=== PATIENT | female | born 1945 | race Caucasian/White ===

== ENCOUNTER → 2017-12-29 16:06 | Outpatient (CLI) | payer MEDICARE, SELFPAY | PROVIDERS: Family Provider Family Medicine; PCP Family Medicine; Visit Provider Family Medicine | DX: M25.532 Pain in left wrist (principal); M25.561 Pain in right knee; M25.562 Pain in left knee | CPT/HCPCS: 73110; 73562 ==

== ENCOUNTER → 2018-02-23 14:41 | Outpatient (CLI) | payer MEDICARE, SELFPAY ==
[2018-02-23 16:16] LABS: Absolute Lymphocyte Count 1.26 X10^3/ul (0.83-4.51); Absolute Neutrophil Count 4.3 X10^3/uL (2.0-7.7); Basophil# 0.03 X10^3/uL; Basophil% 0.5 % (0-1); Eosinophil# 0.07 X10^3/uL; Eosinophils% 1.1 % (0-5); Hematocrit 35.5 % (37-47); Hemoglobin 11.2 g/dl (12.0-15.0); Lymphocyte # 1.26 X10^3/ul (4.0); Mean Corp Hgb Conc 31.5 g/gl (32-36); Mean Corpuscular Hgb 26.4 pg (27.0-32.0); Mean Corpuscular Volume 83.7 fL (81-99); Mean Platelet Vol. 9.8 fl (6.2-12.0); Monocyte# 0.62 X10^3/uL; Monocyte% 9.9 % (0-10); Neutrophil # 4.28 X10^3/uL (2.7-7.7); Platelet Count 571 K/mm3 (150-450); RBC Distribution Width CV 14.1 % (11.6-14.6); RBC Distribution Width SD 42.6 fl (35.1-43.9); Red Blood Count 4.24 M/mm3 (4.2-5.4); White Blood Count 6.3 K/mm3 (4.4-11.0)
[2018-02-23 16:20] LABS: POSITIVE COUNT NO; POSITIVE DIFFERENTIAL NO; POSITIVE MORPHOLOGY NO
[2018-02-23 16:35] LABS: Erythrocyte Sedimentation Rate 74 mm/hr (0-30)
[2018-02-23 16:52] LABS: ALB/GLOB Ratio 0.6 RATIO (0.9-2.4); AST(SGOT) 15 U/L (15-37); Alanine Aminotransfer ALT/SGPT 18 U/L (13-56); Albumin, Serum 3.1 g/dL (3.2-5.0); Alkaline Phosphatase 125 U/L (45-117); Anion Gap 12 (5-15); BUN 14 mg/dL (7-18); BUN/Creat Ratio 15.9 RATIO (10-20); Calcium,Total 8.8 mg/dL (8.5-10.1); Chloride 101 mmol/L (98-107); Creatinine, Serum 0.88 mg/dL (0.55-1.02); EST Glomerular Filtration Rate 67 mL/min (>60); Est Glom Filt Rate - Afr Amer 81 mL/min (>60); Globulin 4.8 g/dL (2.2-4.2); Glucose 79 mg/dL (74-106); Potassium 4.2 mmol/L (3.5-5.1); Protein, Total 7.9 g/dL (6.4-8.2); Rheumatoid Factor < 10.0 IU/mL (<15); Sodium Level 138 mmol/L (136-145)
[2018-02-26 16:09] LABS: SJOGREN'S Anti-SS-A test < 0.2 AI (0.0-0.9); SJOGREN'S Anti-SS-B test < 0.2 AI (0.0-0.9)
[2018-02-27 10:48] LABS: CCP IgG Antibodies 8 units (0-19); HEPATITIS B SURFACE AG Negative (Negative); Hep B Surface Antibodies Non Reactive (.); Hep C Antibodies <0.1 s/co ratio (0.0-0.9)
[2018-02-27 11:23] LABS: ANTINUCLEAR ANTIBODIES DIRECT Negative (Negative)
== END ==
PROVIDERS: Family Provider Family Medicine; PCP Family Medicine; Referring Provider Internal Medicine Rheumatology; Visit Provider Internal Medicine Rheumatology
DX: M06.4 Inflammatory polyarthropathy (principal); M15.9 Polyosteoarthritis, unspecified; Q66.7 Congenital pes cavus; J44.9 Chronic obstructive pulmonary disease, unspecified; F41.9 Anxiety disorder, unspecified; G47.00 Insomnia, unspecified
CPT/HCPCS: 36415; 80053; 85025; 85652; 86038; 86140; 86200; 86235; 86431; 86706; 86803; 87340

== ENCOUNTER 2018-05-02 00:11 | Inpatient (IN) | payer MEDICARE, SELFPAY ==
[2018-05-02] VITALS (21 sets, daily range): BP systolic 97–150; BP diastolic 31–87; PULSE 80–136; RESP 18–35; TEMP 36.4–37.8; O2SAT 85–100; BMI 19.0; BMI 22.1; BMI 22.2
--- NOTE | 2018-05-02 00:17 | ED.RN ---
RN CALLED FOR EKG, PULLED OLD EKGS FOR
--- NOTE | 2018-05-02 00:21 | EKG12_ITS ---
Test Reason : SOB Blood Pressure : / mmHG Vent. Rate : 132 BPM Atrial Rate : 132 BPM P-R Int : 154 ms QRS Dur : 088 ms QT Int : 286 ms P-R-T Axes : 073 097 025 degrees QTc Int : 423 ms Sinus tachycardia Rightward axis Nonspecific ST and T wave abnormality Abnormal ECG Confirmed by WANG ALVES, KALI ([id number]), mapping editor DESTINY RODRÍGUEZ ([id number]) on 05/03/2018 1:57:23 PM Referred By: JO Confirmed By:KALI PIÑA MD
[2018-05-02] MEDS: Ipratropium/Albuterol Sulfate 3 ML AMPUL.NEB INHALATION ×6 (00:24→22:48)
[2018-05-02] MEDS: MethylPREDNISolone 125 MG/2 ML Vial IV (00:26)
[2018-05-02] MEDS: 0.9% Normal Saline 1,000 ML 999 ML IV (00:27)
[2018-05-02] MEDS: Albuterol 2.5 MG/3 ML VIAL.NEB. INHALATION (00:35)
--- NOTE | 2018-05-02 00:35 | RAD_ITS ---
STUDY: X-RAY CHEST REASON FOR EXAM: Female, 72 years old. Shortness of breath TECHNIQUE: Single AP portable view of the chest. COMPARISON: 04/20/2017 FINDINGS: Patchy airspace infiltration throughout bilateral lung bases. Likely small right pleural effusion. Normal size heart. Normal mediastinum and julio. Normal visualized pulmonary arteries. There is atherosclerotic calcification of the aortic arch . Normal visualized thoracic spine. Normal visualized ribs, clavicles, and shoulders. There is no demonstrated abnormality of the visualized soft tissue structures of the upper abdomen. RAD/Chest 1 View (Portable) IMPRESSION: Bibasilar infiltrates. Electronically Signed: Edilson Zuniga MD at 1:08 EST Tel , Service support ,
[2018-05-02 00:45] LABS: Absolute Lymphocyte Count 0.88 X10^3/ul (0.83-4.51); Absolute Neutrophil Count 13.4 X10^3/uL (2.0-7.7); Basophil# 0.02 X10^3/uL; Basophil% 0.1 % (0-1); Eosinophil# 0.09 X10^3/uL; Eosinophils% 0.6 % (0-5); Hematocrit 29.8 % (37-47); Hemoglobin 9.6 g/dl (12.0-15.0); Lymphocyte # 0.88 X10^3/ul (4.0); Lymphocyte % 5.7 % (19-41); Mean Corp Hgb Conc 32.2 g/gl (32-36); Mean Corpuscular Hgb 25.5 pg (27.0-32.0); Monocyte# 0.97 X10^3/uL; Monocyte% 6.3 % (0-10); Neutrophil # 13.41 X10^3/uL (2.7-7.7); Neutrophil % 86.8 % (47-70); Platelet Count 476 K/mm3 (150-450); RBC Distribution Width CV 19.8 % (11.6-14.6); RBC Distribution Width SD 57.2 fl (35.1-43.9); Red Blood Count 3.77 M/mm3 (4.2-5.4); White Blood Count 15.5 K/mm3 (4.4-11.0)
[2018-05-02 00:47] LABS: POSITIVE COUNT NO; POSITIVE DIFFERENTIAL NO; POSITIVE MORPHOLOGY NO
[2018-05-02 00:58] LABS: Anion Gap 12 (5-15); BUN 23 mg/dL (7-18); BUN/Creat Ratio 22.5 RATIO (10-20); Calcium,Total 8.7 mg/dL (8.5-10.1); Chloride 101 mmol/L (98-107); Creatinine, Serum 1.02 mg/dL (0.55-1.02); EST Glomerular Filtration Rate 56 mL/min (>60); Est Glom Filt Rate - Afr Amer 68 mL/min (>60); Estimated Creatinine Clearance 41.51 ml/min; Glucose 118 mg/dL (74-106); Potassium 3.5 mmol/L (3.5-5.1); Sodium Level 137 mmol/L (136-145)
[2018-05-02 01:01] LABS: Lactic Acid 1.9 mmol/L (0.4-2.0)
[2018-05-02] MEDS: Ceftriaxone 1 GM/50 ML BAG IV ×2 (01:24→21:14)
--- NOTE | 2018-05-02 01:46 | ED.VISSUMM ---
- ER Visit Summary Date of Service: 05/02/18 Chief Complaint: Shortness of breath History of Present Illness: The patient is a [address] Antelmo Braun. She reports she has shortness of breath began 2 days ago. She has had a cough over the same timeframe that is productive of black sputum without blood. She has had subjective fever and chills. She reports that she has had constant chest pain that over the lower chest for the past 2 days. Is much worse when she coughs. She did not get a flu shot. Patient reports that she had stopped smoking approximately a year ago. However, 1 week ago she went on a binge where she smoked 3 packs of cigarettes and 4 days. Physical Examination: Vitals: 98.6, 113/67, 122, 35, 85% on room air which is hypoxic. General: Well-nourished and well-developed. Head: Normocephalic atraumatic. Neck: Supple, no lymphadenopathy. No JVD. Nontender. Cardiovascular: Tachycardic regular rhythm. No murmurs. Respiratory: Severe respiratory distress. Her lungs are quiet with greatly decreased air movement. Abdominal: Soft, nontender, nondistended, normal bowel sounds. No guarding, rebound, or peritoneal signs. Back: Nontender. Extremities: Nontender, no edema. Skin: Normal color, no rash. Neurologic: Alert and oriented ?3. Cranial nerves II through XII are intact. Normal strength and sensation. Psych: Normal affect. Test Results: EKG sinus tach [address] changes. Troponin is negative. Influenza is negative. Lactic acid is 1.9. Chem-7 is more for BUN of 23 and glucose 118. CBC is more for a white count of 15.5 with 87 segmented neutrophils and 6 lymphocytes. H&H of 9.6 and 29.8. Platelets of 476. Chest x-ray shows bibasilar infiltrates. Emergency Department Course and Treatment: Patient was placed on oxygen. She was given albuterol and Atrovent aerosols. On repeat exam she has much better air movement. There is no wheezing at this time. She does have rhonchi at the bases bilaterally. She was given Solu-Medrol, Rocephin, and Zithromax IV. She feels much improved. Treatment Plan: Patient was discussed with the hospitalist. She will be admitted to the hospital for further evaluation and treatment. Disposition: Admitted in improved condition. Impression: 1. Pneumonia, community-acquired. 2. COPD. 3. Hypoxia. This note was generated with [employer] dictation software. It may contain incorrect words, spelling, and punctuation that were not noted in review of the chart prior to signing ED Disposition - Plan for ED Patient: Chief Complaint: Shortness of Breath Referrals: Antelmo Logan MD [Primary Care Provider] -
--- NOTE | 2018-05-02 01:56 | HP.PCM_ITS ---
Problem List (1) Community acquired pneumonia Status: Acute (2) COPD (chronic obstructive pulmonary disease) Status: Chronic Qualifiers: COPD type: unspecified COPD Qualified Code(s): J44.9 - Chronic obstructive pulmonary disease, unspecified (3) Tobacco use Status: Chronic (4) Anxiety and depression Status: Chronic History of Present Illness Date of Admission: 05/02/18 Chief Complaint: shortness of breath The patient is a 72 year old F with a significant history of anxiety; depression; and COPD who was on previous home oxygen presented because of 3-5-day history of progressively worsening shortness of breath requiring her to oxygen from her friend. Associated with her symptoms is headache; fatigue; a productive cough of black and green sputum. She reports feeling hot and cold. Patient reports that she quit smoking about a year ago but during the season she was in the midst of a couple of friends who were smoking so she went into binge smoking. Chest x-ray showed bibasilar infiltrates. Patient did not get the flu influenza shot this season. On admission patient had tachycardia with respiratory rate as high as 35; tachycardia with respiratory rate as high as 122. Her T-max was 100.1. On admission her white count was elevated at 15.5 Initially her oxygen saturation was 85%. Also patient reports difficulty walking attributed to arthritis. She reported that she recently saw a drawstring knotter and was placed on medications. Past Medical History Past Medical History (Chronic Problems): Chronic Problems COPD (chronic obstructive pulmonary disease) (Chronic) Tobacco use (Chronic) Anxiety and depression (Chronic) Allergies levofloxacin [From Levaquin] Allergy (Verified 05/02/18 00:23) Other Home Medications: Ambulatory Orders Medication Instructions Recorded Clonazepam [Klonopin] 0.5 mg PO BID 04/20/17 Aspirin [Aspirin, Baby] 81 mg PO DAILY@0800 05/02/18 Folic Acid 2 mg PO DAILY 05/02/18 Methotrexate Sodium [Methotrexate] 10 mg PO QWEEK 05/02/18 Nortriptyline HCl 100 mg PO QHS 05/02/18 Prednisone [Deltasone] 10 mg PO DAILY PRN 05/02/18 Surgical History: no surgical history Psychiatric History: Anxiety, Depression TV NEWS DIRECTOR History: No pertinent TV NEWS DIRECTOR history Smoking Status: Former smoker - Quit in less than 1 week. - *Family History Paternal History Items: Unknown - She reported that she does not know her paternal family history. Maternal History Items: Cancer - Breast CA., Heart Disease, - Review of Systems Constitutional: Reports: Chills, Fever, Malaise, Fatigue. Denies: Weight Change HEENT: Reports: Head Aches. Denies: Sinus Congestion, Sinus Drainage Cardiovascular: Denies: Chest Pain, Palpitations Respiratory: Reports: Shortness of Breath. Denies: Cough, Shortness of breath at rest, Sputum production Gastrointestinal: Denies: Abdominal Pain, Nausea, Vomiting Genitourinary: Denies: Dysuria Musculoskeletal: Reports: Joint Pain Skin: Denies: Rash, Wounds Neurological: Denies: Numbness, Tingling, Focal weakness Psychiatric: Reports: Anxiety. Denies: Depression, Homicidal Ideations, Suicidal Ideations Hematologic/ Lymphatic: Denies: Easy Bruising, Easy Bleeding VTE Information - Inpt Only VTE Present on Admission: No VTE Mechan Device Prophylaxis: SCD's VTE Pharm Prophylaxis ordered?: No Patient Problems: Active and Suspected Problems Community acquired pneumonia (Acute) - Physical Exam General: Alert, Oriented x3, Cooperative HEENT: Atraumatic, PERRLA, EOMI, Normocephalic Neck: Supple, No JVD, Negative Carotid Bruits Lungs: Diminished, Tachypneic, - - Bilateral chest Cardiovascular: No murmurs, Tachycardic Abdomen: Bowel Sounds Present, Soft, Non Tender Extremities: No edema, Capillary Refill Less than 3 Seconds Skin: No rashes, No breakdown Musculoskeletal: Cachexia Neurological: Neuro grossly intact Psych/Mental Status: Normal Affect, Appropriate Vital Signs Temp Pulse Resp BP Pulse Ox 100.1 F H 122 H 30 H 115/52 L 94 05/02/18 01:22 05/02/18 01:22 05/02/18 01:22 05/02/18 01:22 05/02/18 01:22 Oxygen Flow Rate (L/min) 2 Oxygen Delivery Method Nasal Cannula Weight: 53.524 kg Body Mass Index (BMI) 19.0 Microbiology Past 72 Hours 05/02/18 00:35 Influenza Types A,B Direct FA (MALLY) - Final Mucosa - Nasopharyngeal Laboratory Tests Past 24 Hrs 05/02/18 05/02/18 05/02/18 00:25 00:25 00:25 WBC 15.5 H RBC 3.77 L Hgb 9.6 L Hct 29.8 L MCV 79.0 L MCH 25.5 L MCHC 32.2 RDW 19.8 H RDW Differential 57.2 H Plt Count 476 H MPV 9.0 Immature Gran % (Auto) 0.500 Neut % (Auto) 86.8 H Lymph % (Auto) 5.7 L [place] % (Auto) 6.3 Eos % (Auto) 0.6 Baso % (Auto) 0.1 Absolute Neuts (auto) 13.4 H Absolute Lymphs (auto) 0.88 Total Counted Not Reportable Sodium 137 Potassium 3.5 Chloride 101 Carbon Dioxide 24.0 Anion Gap 12 BUN 23 H Creatinine 1.02 Estim Creat Clear Calc 41.51 Est GFR (MDRD) Af Amer 68 Est GFR (MDRD) Non-Af 56 L BUN/Creatinine Ratio 22.5 H Glucose 118 H Lactic Acid 1.9 Calcium 8.7 Troponin I < 0.015 Assessment/Plan All Active Problems Community acquired pneumonia (Acute) The patient is a 72 year old F with a significant history of anxiety; depression; and COPD who was on previous home oxygen presented because of 3-5-day history of progressively worsening shortness of breath; chills; and with tachycardia; tachypnea; leukocytosis; and radiographic evidence of bilateral infiltrates consistent with severe sepsis secondary to likely community-acquired pneumonia. Severe sepsis Blood culture are pending Independent review of chest x-ray showed bilateral infiltrates. Review of old records show that patient has baseline fibrosis. However she has more opacities bilaterally at this time. And with her tachycardia; tachypnea; leukocytosis; fever and chills patient is septic. Lactic acid was unremarkable. Respiratory Gram stain and culture pending Antibiotics: Received Ceftriaxone and azithromycin in the emergency department. Received normal saline bolus at emergency department. DuoNeb scheduled. Albuterol as needed Legionella antigen screen and Strep antigen ordered Solu-Medrol due to severity of her condition. Mucinex ordered Influenza screen negative. Respiratory pathogen panel ordered. Tylenol for fever and headaches. Oxygen to maintain oxygen saturation more than 90%. Acute COPD exacerbation Breathing treatments: Scheduled DuoNeb and as needed albuterol. Steroid as above. Depression Nortriptyline continued Anxiety :clonazepam continued Rheumatoid arthritis: Methotrexate continued Tobacco abuse She reported that she will be seen to be quite good. Declined nicotine patch. Cachexia. Reported BMI in EMR is 22.2. However patient looks cachectic Ensure Enlive ordered Rheumatoid arthritis: Methotrexate with folic acid continued. DVT prophylaxis Lovenox subcutaneous. Code Visit Inpatient E&M: 21606 Init Hosp L3
[2018-05-02 05:55] LABS: M R Staph aureus DNA By PCR Negative (Negative); Probe Check PASS; Specimen Processing Control PASS
[2018-05-02] MEDS: CLARIFY ORDER 1 EACH NOTE (07:23)
[2018-05-02] MEDS: Enoxaparin 40 MG/0.4 ML Syringe SC (08:31)
[2018-05-02] MEDS: Aspirin 81 MG TAB.CHEW PO (08:31)
[2018-05-02] MEDS: 0.9% NaCl Peripheral Flush Adult/Peds IV ×4 (08:32→21:15)
[2018-05-02] MEDS: clonazePAM 0.5 MG Tablet PO ×2 (09:09→21:14)
[2018-05-02] MEDS: Folic Acid 1 MG Tablet 2 MG PO (09:09)
[2018-05-02] MEDS: guaiFENesin 1,200 MG Tablet 1200 MG PO ×2 (09:09→21:14)
--- NOTE | 2018-05-02 10:19 | CASEMGMT ---
AMA CM Assessment Presentation: 3-5 day history of progressive shortness of breath. Bibasilar infiltrates, pneumonia. Sat 85% on admission. PCP: Dr. Dinorah Logan Preferred [facility]acy: [facility] Insurance: [facility] Prescription Benefit: yes LNOK: Lian Hall, Niece Living Arrangements: Lives independently in own home, one story, 1 step into home Transportation: drives or friend, family can assist DME/HHC: Home Oxygen through [facility] with concentrator, portable tank, (no nebulizer), walker, cane DC PLAN: Home on dc
--- NOTE | 2018-05-02 19:14 | PCM.HOSP.N ---
Hospitalist Note And examined today briefly, her respiratory panel results are pending at this time. She is currently on room air. I will repeat the patient's CBC tomorrow and continue present treatment for now.
[2018-05-02] MEDS: Nortriptyline 25 MG Capsule 100 MG PO (21:15)
[2018-05-02] MEDS: 0.9% NaCl IVPB Med Flush (250 mL) 15 ML IV (22:13)
[2018-05-03] VITALS (12 sets, daily range): BP systolic 95–156; BP diastolic 58–67; PULSE 78–104; RESP 16–20; TEMP 36.4–36.7; O2SAT 93–95
[2018-05-03] MEDS: Ipratropium/Albuterol Sulfate 3 ML AMPUL.NEB INHALATION ×6 (02:42→22:53)
[2018-05-03] MEDS: 0.9% NaCl Peripheral Flush Adult/Peds IV ×2 (05:49→20:54)
[2018-05-03] MEDS: guaiFENesin 10 ML UDC (200MG/10ML) PO (05:49)
--- NOTE | 2018-05-03 06:20 | RAD_ITS ---
STUDY: X-RAY CHEST REASON FOR EXAM: Female, 72 years old. Shortness of breath. TECHNIQUE: PA and lateral views of the chest. COMPARISON: Comparison is made with prior study dated May 02, 2018. FINDINGS: Since prior study, there is been progression of the increased interstitial markings at the lung bases with areas of confluence. This may represent chronic scarring with a superimposed bibasilar infiltration and/or atelectasis. Hyperinflation. Blunting of both costophrenic angles. Normal size heart. Normal mediastinum and julio. Normal visualized pulmonary arteries. There is atherosclerotic calcification of the aortic arch with tortuosity. There is an increased kyphosis of the thoracic spine. Normal visualized ribs, clavicles, and shoulders. There is no demonstrated abnormality of the visualized soft tissue structures of the upper abdomen. RAD/Chest PA and Lateral IMPRESSION: Progressive infiltrates of the lung bases. This is suggestive of chronic interstitial fibrosis with superimposed infiltration and/or atelectasis. Electronically Signed: Emerson Corona MD at 13:02 EST Tel [phone], Service support ,
[2018-05-03 06:25] LABS: Absolute Lymphocyte Count 0.45 X10^3/ul (0.83-4.51); Absolute Neutrophil Count 12.7 X10^3/uL (2.0-7.7); Eosinophil# 0.05 X10^3/uL; Eosinophils% 0.4 % (0-5); Hemoglobin 8.1 g/dl (12.0-15.0); Lymphocyte # 0.45 X10^3/ul (4.0); Lymphocyte % 3.4 % (19-41); Mean Corp Hgb Conc 32.4 g/gl (32-36); Mean Corpuscular Hgb 25.5 pg (27.0-32.0); Mean Corpuscular Volume 78.6 fL (81-99); Mean Platelet Vol. 9.8 fl (6.2-12.0); Monocyte% 1.5 % (0-10); Neutrophil # 12.66 X10^3/uL (2.7-7.7); Neutrophil % 94.3 % (47-70); Platelet Count 505 K/mm3 (150-450); RBC Distribution Width CV 19.8 % (11.6-14.6); RBC Distribution Width SD 54.1 fl (35.1-43.9); Red Blood Count 3.18 M/mm3 (4.2-5.4); White Blood Count 13.4 K/mm3 (4.4-11.0)
[2018-05-03 06:28] LABS: Differential Indicated SCAN CRITERIA MET; POSITIVE COUNT NO; POSITIVE DIFFERENTIAL YES; POSITIVE MORPHOLOGY NO
[2018-05-03 06:46] LABS: Anion Gap 10 (5-15); BUN 26 mg/dL (7-18); Calcium,Total 8.5 mg/dL (8.5-10.1); Chloride 104 mmol/L (98-107); Creatinine, Serum 0.87 mg/dL (0.55-1.02); EST Glomerular Filtration Rate 68 mL/min (>60); Est Glom Filt Rate - Afr Amer 82 mL/min (>60); Estimated Creatinine Clearance 53.91 ml/min; Glucose 263 mg/dL (74-106); Potassium 3.7 mmol/L (3.5-5.1); Sodium Level 138 mmol/L (136-145)
--- NOTE | 2018-05-03 08:18 | CT_ITS ---
STUDY: CT CHEST WITHOUT CONTRAST REASON FOR EXAM: Female, 72 years old. History of lung nodule. Chronic cough. Sepsis. RADIATION DOSAGE (If Supplied By Facility): CTDIvol = ( 7.59 ) mGy, DLP = ( 252.77 ) mGycm TECHNIQUE: Transaxial imaging was performed without the administration of intravenous contrast material. Multiplanar coronal and sagittal images were reformatted. Individualized dose optimization techniques were used for this CT. COMPARISON: Comparison is made with prior examination dated April 23, 2017. FINDINGS: Hyperinflation. Increased interstitial markings with areas of confluence with cystic spaces suggestive of chronic interstitial fibrosis. There is also evidence of patchy infiltrates at the lung bases. There is no demonstrated pleural abnormality. There are calcifications of the coronary arteries. Slightly enlarged mediastinal lymph nodes. Calcified right hilar lymph nodes. Normal unenhanced pulmonary arteries. There is atherosclerotic calcification of the aortic arch with tortuosity and elongation of the aortic arch and descending thoracic aorta. There are multi-level degenerative changes of the thoracic spine. Increased kyphosis. Moderate sized hiatal hernia. CT/Chest without Contrast IMPRESSION: Findings in keeping with bibasilar infiltrates superimposed on chronic interstitial fibrosis. Electronically Signed: Emerson Corona MD at 15:53 EST Tel [phone], Service support ,
[2018-05-03] MEDS: Aspirin 81 MG TAB.CHEW PO (08:39)
[2018-05-03] MEDS: clonazePAM 0.5 MG Tablet PO ×2 (08:39→20:54)
[2018-05-03] MEDS: Folic Acid 1 MG Tablet 2 MG PO (08:39)
[2018-05-03] MEDS: guaiFENesin 1,200 MG Tablet 1200 MG PO ×2 (10:29→20:54)
[2018-05-03] MEDS: Enoxaparin 40 MG/0.4 ML Syringe SC (10:29)
[2018-05-03] MEDS: Calcium Carbonate 500 MG Tablet PO (14:07)
--- NOTE | 2018-05-03 16:08 | PCM.PROGNOTE ---
Patient Problems: Active and Suspected Problems Community acquired pneumonia (Acute) Subjective: Patient seen and examined today, she has been stable on room air today, CT scan was performed which showed areas of fibrosis in the lung along with bibasilar infiltrates. Patient white blood cell count is improved today. Patient is afebrile. - Physical Exam General: Alert, Oriented x3, Cooperative, No apparent distress, Well developed HEENT: Atraumatic, PERRLA, EOMI, Normocephalic Oral: Moist Mucosa Neck: Supple, No Nuchal Rigidity, Trachea Midline, Thyroid Normal Size and Texture Lungs: No rhonchi, No wheeze, Rales - Inspiratory rales are noted at the bases bilaterally Cardiovascular: Regular rate, Regular Rhythm, Normal S1, Normal S2, No murmurs, No Ectopic Activity, PMI Normal, No rub noted, No Gallop Abdomen: Bowel Sounds Present, Soft, Non Tender, Non-Distended, No hernias noted Extremities: No edema, Capillary Refill Less than 3 Seconds Skin: No rashes, No breakdown Neurological: Cranial nerves II-XII grossly intact, Neuro grossly intact, Sensory exam intact to light touch and pain, Coordination normal Psych/Mental Status: Normal Affect, Appropriate, Alert and oriented to time, place, person, mood and affect Vital Signs Temp Pulse Resp BP Pulse Ox 97.9 F 85 20 H 99/59 L 94 05/03/18 10:51 05/03/18 15:24 05/03/18 15:24 05/03/18 10:51 05/03/18 14:00 Oxygen Flow Rate (L/min) 2 Oxygen Delivery Method Room Air Weight: 62.3 kg Body Mass Index (BMI) 22.1 Intake and Output for Last 24 Hours 05/01/18 05/02/18 05/03/18 23:59 23:59 23:59 Intake Total 2012 540 / 540 Output Total 1400 / 1400 600 / 600 Balance 613 / 613 -60 / -60 Microbiology Past 72 Hours 05/02/18 07:15 Gram Stain - Final Sputum, Expectorated/Coughed Respiratory Culture - Preliminary GNR lactose 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 05/02/18 07:10 Respiratory Panel (PCR) - Final Mucosa - Nasopharyngeal 05/02/18 03:53 Legionella Antigen - Final Urine, Clean Catch 05/02/18 03:53 Streptococcus pneumoniae Antigen (M - Final Urine, Clean Catch 05/02/18 00:35 Influenza Types A,B Direct FA (MALLY) - Final Mucosa - Nasopharyngeal Laboratory Tests Past 24 Hrs 05/03/18 05/03/18 05:40 05:40 WBC 13.4 H RBC 3.18 L Hgb 8.1 L Hct 25.0 L MCV 78.6 L MCH 25.5 L MCHC 32.4 RDW 19.8 H RDW Differential 54.1 H Plt Count 505 H MPV 9.8 Immature Gran % (Auto) 0.400 Neut % (Auto) 94.3 H Lymph % (Auto) 3.4 L [place] % (Auto) 1.5 Eos % (Auto) 0.4 Baso % (Auto) 0.0 Absolute Neuts (auto) 12.7 H Absolute Lymphs (auto) 0.45 L Total Counted Not Reportable Sodium 138 Potassium 3.7 Chloride 104 Carbon Dioxide 24.0 Anion Gap 10 BUN 26 H Creatinine 0.87 Estim Creat Clear Calc 53.91 Est GFR (MDRD) Af Amer 82 Est GFR (MDRD) Non-Af 68 BUN/Creatinine Ratio 30.0 H Glucose 263 H Calcium 8.5 Medical Necessity - Tobacco Use Smoking Status: Former smoker Tobacco Use: Cigarettes Assessment/Plan All Active Problems Community acquired pneumonia (Acute) #1 community-acquired hatkgxlor-ojvj-qfwybkrm bacterial, continue present antibiotic coverage #2 pulmonary fibrosis #3 Anxiety/depression #4 probable COPD Code Visit Inpatient E&M: 69149 Subs Hosp L2
--- NOTE | 2018-05-03 16:11 | PN_ITS ---
Patient Problems: Active and Suspected Problems Community acquired pneumonia (Acute) Subjective: Patient seen and examined today, she has been stable on room air today, CT scan was performed which showed areas of fibrosis in the lung along with bibasilar infiltrates. Patient white blood cell count is improved today. Patient is a febrile. - Physical Exam General: Alert, Oriented x3, Cooperative, No apparent distress, Well developed HEENT: Atraumatic, PERRLA, EOMI, Normocephalic Oral: Moist Mucosa Neck: Supple, No Nuchal Rigidity, Trachea Midline, Thyroid Normal Size and Texture Lungs: No rhonchi, No wheeze, Rales - Inspiratory rales are noted at the bases bilaterally Cardiovascular: Regular rate, Regular Rhythm, Normal S1, Normal S2, No murmurs, No Ectopic Activity, PMI Normal, No rub noted, No Gallop Abdomen: Bowel Sounds Present, Soft, Non Tender, Non-Distended, No hernias noted Extremities: No edema, Capillary Refill Less than 3 Seconds Skin: No rashes, No breakdown Neurological: Cranial nerves II-XII grossly intact, Neuro grossly intact, Sensory exam intact to light touch and pain, Coordination normal Psych/Mental Status: Normal Affect, Appropriate, Alert and oriented to time, place, person, mood and affect Vital Signs Temp Pulse Resp BP Pulse Ox 97.9 F 85 20 H 99/59 L 94 05/03/18 10:51 05/03/18 15:24 05/03/18 15:24 05/03/18 10:51 05/03/18 14:00 Oxygen Flow Rate (L/min) 2 Oxygen Delivery Method Room Air Weight: 62.3 kg Body Mass Index (BMI) 22.1 Intake and Output for Last 24 Hours 05/01/18 05/02/18 05/03/18 23:59 23:59 23:59 Intake Total 2012 540 / 540 Output Total 1400 / 1400 600 / 600 Balance 613 / 613 -60 / -60 Microbiology Past 72 Hours 05/02/18 07:15 Gram Stain - Final Sputum, Expectorated/Coughed Respiratory Culture - Preliminary GNR lactose 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 captain 05/02/18 07:10 Respiratory Panel (PCR) - Final Mucosa - Nasopharyngeal 05/02/18 03:53 Legionella Antigen - Final Urine, Clean Catch 05/02/18 03:53 Streptococcus pneumoniae Antigen (M - Final Urine, Clean Catch 05/02/18 00:35 Influenza Types A,B Direct FA (MALLY) - Final Mucosa - Nasopharyngeal Laboratory Tests Past 24 Hrs 05/03/18 05/03/18 05:40 05:40 WBC 13.4 H RBC 3.18 L Hgb 8.1 L Hct 25.0 L MCV 78.6 L MCH 25.5 L MCHC 32.4 RDW 19.8 H RDW Differential 54.1 H Plt Count 505 H MPV 9.8 Immature Gran % (Auto) 0.400 Neut % (Auto) 94.3 H Lymph % (Auto) 3.4 L [place] % (Auto) 1.5 Eos % (Auto) 0.4 Baso % (Auto) 0.0 Absolute Neuts (auto) 12.7 H Absolute Lymphs (auto) 0.45 L Total Counted Not Reportable Sodium 138 Potassium 3.7 Chloride 104 Carbon Dioxide 24.0 Anion Gap 10 BUN 26 H Creatinine 0.87 Estim Creat Clear Calc 53.91 Est GFR (MDRD) Af Amer 82 Est GFR (MDRD) Non-Af 68 BUN/Creatinine Ratio 30.0 H Glucose 263 H Calcium 8.5 Medical Necessity - Tobacco Use Smoking Status: Former smoker Tobacco Use: Cigarettes Assessment/Plan All Active Problems Community acquired pneumonia (Acute) #1 community-acquired frkjhkbpu-yjqh-opnujboo bacterial, continue present antibiotic coverage #2 pulmonary fibrosis #3 Anxiety/depression #4 probable COPD Code Visit Inpatient E&M: 76315 Subs Hosp L2
[2018-05-03] MEDS: Nortriptyline 25 MG Capsule 100 MG PO (20:53)
[2018-05-03] MEDS: Amox/Clavulanate 875 MG Tablet PO (23:22)
[2018-05-04] MEDS: Ipratropium/Albuterol Sulfate 3 ML AMPUL.NEB INHALATION ×3 (02:44→10:42)
[2018-05-04 02:45] VITALS: PULSE 80; RESP 18
[2018-05-04 03:09] VITALS: BP 116/65; PULSE 102; RESP 16; TEMP 36.7; O2SAT 94
[2018-05-04 06:42] VITALS: PULSE 88; RESP 20; O2SAT 95
[2018-05-04 08:27] VITALS: BP 102/67; PULSE 91; RESP 18; TEMP 36.8; O2SAT 92
[2018-05-04] MEDS: Amox/Clavulanate 875 MG Tablet PO (08:29)
[2018-05-04] MEDS: Aspirin 81 MG TAB.CHEW PO (08:29)
[2018-05-04] MEDS: predniSONE 20 MG Tablet 40 MG PO (08:29)
[2018-05-04] MEDS: guaiFENesin 1,200 MG Tablet 1200 MG PO (08:30)
[2018-05-04] MEDS: Enoxaparin 40 MG/0.4 ML Syringe SC (08:30)
[2018-05-04] MEDS: Folic Acid 1 MG Tablet 2 MG PO (08:30)
[2018-05-04] MEDS: clonazePAM 0.5 MG Tablet PO (08:34)
[2018-05-04 09:25] VITALS: O2SAT 87; O2SAT 92; O2SAT 94
--- NOTE | 2018-05-04 09:39 | NURSING ---
Pt states she uses inhaler at home but does not know name. This RN called Dr. Logan's office and spoke with nurse Ana Lilia- notified that pt uses proair inhaler q4hr as needed and that no other inhalers have been given or prescribed. Notified that they did discuss pulmonary rehab. Dr. Galo notified.
--- NOTE | 2018-05-04 09:54 | DCINST_ITS ---
- Discharge Diagnoses Current Active Problems: Current Active and Chronic Problems Community acquired pneumonia (Acute) You will use the following diet at home:: No restrictions Your food should be the consistency of: Regular Your liquids should be the consistency of: Regular/Thin Discharge Activity: Return to Normal Activity Weight Bearing Status: Full weight bearing Allergies/Adverse Reactions: Allergies levofloxacin [From Levaquin] Allergy (Verified 05/02/18 04:01) severe ankle pain Medications to take at Discharge Clonazepam [Klonopin] 0.5 mg PO BID 04/20/17 Aspirin [Aspirin, Baby] 81 mg PO DAILY@0800 05/02/18 Folic Acid 2 mg PO DAILY 05/02/18 Methotrexate Sodium [Methotrexate] 10 mg PO QWEEK 05/02/18 Nortriptyline HCl 100 mg PO QHS 05/02/18 Prednisone [Deltasone] 10 mg PO DAILY PRN 05/02/18 Acetaminophen [Tylenol Tablet] 650 mg PO Q6H PRN PRN tablet 05/04/18 Albuterol Sulfate [Ventolin Hfa] 2 puff INHALATION 4X/DAY #1 hfa.aer.ad 05/04/18 Amox/Clavulanate Tablet [Augmentin Tablet] 875 mg PO BID #14 tablet 05/04/18 The following prescriptions were given: Amox/Clavulanate Tablet [Augmentin Tablet] 875 mg PO BID #14 tablet Albuterol Sulfate [Ventolin Hfa] 2 puff INHALATION 4X/DAY #1 hfa.aer.ad Primary Care Physician: Antelmo Logan MD [Primary Care Provider] - Please follow up with your Primary Care Physician in: in 1-2 weeks Test Results: Test results from this visit will be discussed in further detail at your follow- up appointment, if applicable.
[2018-05-04 10:42] VITALS: PULSE 83; RESP 18
--- NOTE | 2018-05-04 17:31 | DS.PCM_ITS ---
Discharge Date and Diagnosis Date of Admission: 05/02/18 Date of Discharge: 05/04/18 - Primary Discharge Diagnosis #1 community-acquired pneumonia-E. coli #2 pulmonary fibrosis #3 Anxiety/depression #4 probable COPD #5 anxiety and depression - Secondary Discharge Diagnosis Chronic Problems COPD (chronic obstructive pulmonary disease) (Chronic) Tobacco use (Chronic) Anxiety and depression (Chronic) Hospital Course and Treatment Operations: None Procedures: None Summary of Care Provided: The patient is a 72 year old F who was seen in the emergency room at [facility] chief complaint of shortness of breath. Workup in the emergency room included labs which revealed her to be influenza negative, lactic acid was 1.9, BUN was 23, glucose was 118, CBC showed an elevated white count of 15.5, chest x-ray showed bibasilar infiltrates. Patient was felt to have community-acquired pneumonia, she was placed on nasal cannula O2, and given IV antibiotics. Patient was admitted to [place] [address], she received aerosol treatments and continued administration of antibiotics. Patient underwent a CAT scan which showed evidence of pulmonary fibrosis and bibasilar infiltrates. Patient's sputum grew E. coli and mixed eloina, respiratory panel was unremarkable, blood cultures were unremarkable. On 05/04/18, patient was seen and examined: On examination she appeared in good health and spirits. Vital signs as documented. Skin warm and dry and without overt rashes. Neck without JVD. Lungs-breath sounds are distant bilaterally, no wheezes or rhonchi were noted. Heart exam notable for regular rhythm, normal sounds and absence of murmurs, rubs or gallops. Abdomen unremarkable and without evidence of organomegaly, masses, or abdominal aortic enlargement. Extremities nonedematous. Neuro: Cranial nerves II through XII are grossly intact, no focal motor deficits were noted, sensation to light touch and pinprick is intact. Psych: Patient is alert and oriented x3, she does not appear anxious or depressed On 05/04/18, patient was seen and examined felt to be in stable condition for discharge home. Final note, patient's pulse ox on ambulation on room air was 87%, patient had oxygen at home for use and was instructed to use the oxygen on ambulation at home and when she goes outside the home. - Physical Exam Vital Signs Temp Pulse Resp BP Pulse Ox 98.2 F 83 18 102/67 94 05/04/18 08:27 05/04/18 10:42 05/04/18 10:42 05/04/18 08:27 05/04/18 09:25 Oxygen Flow Rate (L/min) [ 1 AMBULATION with Oxygen] Oxygen Flow Rate (L/min) 2 Oxygen Delivery Method Room Air Weight: 62.3 kg Body Mass Index (BMI) 22.1 Intake and Output for Last 24 Hours 05/02/18 05/03/18 05/04/18 23:59 23:59 23:59 Intake Total 2012 780 / 780 Output Total 1400 / 1400 1300 / 1300 Balance 613 / 613 -520 / -520 Microbiology Past 72 Hours 05/02/18 01:25 Blood Culture - Preliminary Blood Culture (Wb) #2 - Left Hand No growth in 48 hours. 05/02/18 00:25 Blood Culture - Preliminary Blood Culture (Wb) - Anticubital Left No growth in 48 hours. 05/02/18 07:15 Gram Stain - Final Sputum, Expectorated/Coughed Respiratory Culture - Final Escherichia coli Mixed Eloina 05/02/18 07:10 Respiratory Panel (PCR) - Final Mucosa - Nasopharyngeal 05/02/18 03:53 Legionella Antigen - Final Urine, Clean Catch 05/02/18 03:53 Streptococcus pneumoniae Antigen (M - Final Urine, Clean Catch 05/02/18 00:35 Influenza Types A,B Direct FA (MALLY) - Final Mucosa - Nasopharyngeal Discharge Activity: Return to Normal Activity Weight Bearing Status: Full weight bearing Home Medications: Medications to take at Discharge Clonazepam [Klonopin] 0.5 mg PO BID 04/20/17 Aspirin [Aspirin, Baby] 81 mg PO DAILY@0800 05/02/18 Folic Acid 2 mg PO DAILY 05/02/18 Methotrexate Sodium [Methotrexate] 10 mg PO QWEEK 05/02/18 Nortriptyline HCl 100 mg PO QHS 05/02/18 Prednisone [Deltasone] 10 mg PO DAILY PRN 05/02/18 Acetaminophen [Tylenol Tablet] 650 mg PO Q6H PRN PRN tablet 05/04/18 Albuterol Sulfate [Ventolin Hfa] 2 puff INHALATION 4X/DAY #1 hfa.aer.ad 05/04/18 Amox/Clavulanate Tablet [Augmentin Tablet] 875 mg PO BID #14 tablet 05/04/18 Following Prescrptions Were Given to Patient: Amox/Clavulanate Tablet [Augmentin Tablet] 875 mg PO BID #14 tablet Albuterol Sulfate [Ventolin Hfa] 2 puff INHALATION 4X/DAY #1 hfa.aer.ad Primary Care Physician: Antelmo Logan MD [Primary Care Provider] - Please follow up with your Primary Care Physician in: in 1-2 weeks Please Follow Up With: Estella Disposition: Home Minutes spent on discharge:: 32 Patient Condition:: Stable Medical Necessity - Tobacco Use Smoking Status: Former smoker Tobacco Use: Cigarettes Meaningful Use Info Meaningful Use Diagnoses (Choose all that apply): None applicable Code Visit Inpatient E&M: 06586 Disch Hosp
== END 2018-05-04 11:33 | disposition home or self-care (01) | DRG 178 ==
LOC: ED 01:53 → MS2 02:14
PROVIDERS: Admitting Provider Hospitalist; Emergency Provider Emergency Medicine; Family Provider Family Medicine; PCP Family Medicine; Visit Provider Internal Medicine
DX: J15.5 Pneumonia due to Escherichia coli (principal); J44.0 Chronic obstructive pulmonary disease with (acute) lower respiratory infection; R64 Cachexia; M06.9 Rheumatoid arthritis, unspecified; J84.10 Pulmonary fibrosis, unspecified; R09.02 Hypoxemia; F32.9 Major depressive disorder, single episode, unspecified; F41.9 Anxiety disorder, unspecified; Z72.0 Tobacco use; Z68.22 Body mass index [BMI] 22.0-22.9, adult; Z79.899 Other long term (current) drug therapy
CPT/HCPCS: 36415; 71045; 71046; 71250; 80048; 83605; 84484; 85025; 87040; 87070; 87077; 87186; 87205; 87449; 87633; 87641; 87804; 93005; 94640; 94667; 94668; 97162; 97166; 97802; 99251; 99284; 99406; J7030; J7050; A4216; G0463

== ENCOUNTER → 2018-06-15 13:40 | Outpatient (CLI) | payer MEDICARE, SELFPAY ==
[2018-05-02 03:18] VITALS: BMI 22.1
[2018-06-15 16:00] LABS: Absolute Neutrophil Count 5.6 X10^3/uL (2.0-7.7); Basophil# 0.03 X10^3/uL; Basophil% 0.4 % (0-1); Eosinophil# 0.33 X10^3/uL; Eosinophils% 4.1 % (0-5); Hematocrit 39.5 % (37-47); Hemoglobin 11.9 g/dl (12.0-15.0); Lymphocyte % 18.5 % (19-41); Mean Corp Hgb Conc 30.1 g/gl (32-36); Mean Corpuscular Hgb 26.2 pg (27.0-32.0); Mean Corpuscular Volume 86.8 fL (81-99); Monocyte# 0.65 X10^3/uL; Neutrophil # 5.57 X10^3/uL (2.7-7.7); Neutrophil % 68.5 % (47-70); Platelet Count 262 K/mm3 (150-450); RBC Distribution Width CV 21.6 % (11.6-14.6); RBC Distribution Width SD 68.7 fl (35.1-43.9); Red Blood Count 4.55 M/mm3 (4.2-5.4); White Blood Count 8.1 K/mm3 (4.4-11.0)
[2018-06-15 16:03] LABS: Differential Indicated SCAN CRITERIA MET; POSITIVE COUNT NO; POSITIVE DIFFERENTIAL NO; POSITIVE MORPHOLOGY YES
[2018-06-15 16:13] LABS: BUN 18 mg/dL (7-18); Creatinine, Serum 0.74 mg/dL (0.55-1.02); EST Glomerular Filtration Rate 82 mL/min (>60); Glucose 92 mg/dL (74-106)
[2018-06-15 16:14] LABS: AST(SGOT) 13 U/L (15-37); Alanine Aminotransfer ALT/SGPT 24 U/L (13-56); Albumin, Serum 3.4 g/dL (3.2-5.0); Alkaline Phosphatase 102 U/L (45-117); Anion Gap 11 (5-15); BUN/Creat Ratio 24.4 RATIO (10-20); Calcium,Total 8.7 mg/dL (8.5-10.1); Chloride 106 mmol/L (98-107); Est Glom Filt Rate - Afr Amer 99 mL/min (>60); Globulin 3.3 g/dL (2.2-4.2); Potassium 3.6 mmol/L (3.5-5.1); Protein, Total 6.7 g/dL (6.4-8.2); Sodium Level 143 mmol/L (136-145)
[2018-06-15 16:41] LABS: Anisocytosis 2+; Differential Comment SCANNED; Macrocytosis 1+; Microcytosis 1+
== END ==
PROVIDERS: Family Provider Family Medicine; PCP Family Medicine; Referring Provider Internal Medicine Rheumatology; Visit Provider Internal Medicine Rheumatology
DX: M06.4 Inflammatory polyarthropathy (principal); Z79.899 Other long term (current) drug therapy; M15.9 Polyosteoarthritis, unspecified; Q66.7 Congenital pes cavus; J44.9 Chronic obstructive pulmonary disease, unspecified; F41.9 Anxiety disorder, unspecified; G47.00 Insomnia, unspecified
CPT/HCPCS: 36415; 80053; 85025

== ENCOUNTER → 2018-08-10 14:33 | Outpatient (CLI) | payer MEDICARE, SELFPAY ==
[2018-05-02 03:18] VITALS: BMI 22.1
[2018-08-10 16:15] LABS: Absolute Lymphocyte Count 1.38 X10^3/ul (0.83-4.51); Absolute Neutrophil Count 5.4 X10^3/uL (2.0-7.7); Basophil# 0.02 X10^3/uL; Basophil% 0.3 % (0-1); Eosinophil# 0.05 X10^3/uL; Eosinophils% 0.7 % (0-5); Hematocrit 37.1 % (37-47); Hemoglobin 11.4 g/dl (12.0-15.0); Lymphocyte # 1.38 X10^3/ul (4.0); Mean Corp Hgb Conc 30.7 g/gl (32-36); Mean Corpuscular Hgb 26.9 pg (27.0-32.0); Mean Corpuscular Volume 87.5 fL (81-99); Mean Platelet Vol. 9.8 fl (6.2-12.0); Monocyte# 0.42 X10^3/uL; Monocyte% 5.8 % (0-10); Neutrophil # 5.36 X10^3/uL (2.7-7.7); Neutrophil % 73.9 % (47-70); Platelet Count 338 K/mm3 (150-450); RBC Distribution Width CV 19.4 % (11.6-14.6); RBC Distribution Width SD 62.7 fl (35.1-43.9); Red Blood Count 4.24 M/mm3 (4.2-5.4); White Blood Count 7.3 K/mm3 (4.4-11.0)
[2018-08-10 16:19] LABS: POSITIVE COUNT NO; POSITIVE DIFFERENTIAL NO; POSITIVE MORPHOLOGY NO
[2018-08-10 16:51] LABS: ALB/GLOB Ratio 1.4 RATIO (0.9-2.4); AST(SGOT) 16 U/L (15-37); Alanine Aminotransfer ALT/SGPT 21 U/L (13-56); Albumin, Serum 3.9 g/dL (3.2-5.0); Alkaline Phosphatase 121 U/L (45-117); Anion Gap 8 (5-15); BUN 16 mg/dL (7-18); BUN/Creat Ratio 20.4 RATIO (10-20); Calcium,Total 8.4 mg/dL (8.5-10.1); Chloride 104 mmol/L (98-107); Creatinine, Serum 0.78 mg/dL (0.55-1.02); EST Glomerular Filtration Rate 76 mL/min (>60); Est Glom Filt Rate - Afr Amer 92 mL/min (>60); Globulin 2.8 g/dL (2.2-4.2); Glucose 74 mg/dL (74-106); Potassium 3.8 mmol/L (3.5-5.1); Protein, Total 6.7 g/dL (6.4-8.2); Sodium Level 138 mmol/L (136-145)
== END ==
PROVIDERS: Family Provider Family Medicine; PCP Family Medicine; Referring Provider Family Medicine; Visit Provider Internal Medicine Rheumatology
DX: M06.4 Inflammatory polyarthropathy (principal); M15.9 Polyosteoarthritis, unspecified; Q66.7 Congenital pes cavus; J44.9 Chronic obstructive pulmonary disease, unspecified; F41.9 Anxiety disorder, unspecified; G47.00 Insomnia, unspecified; Z79.899 Other long term (current) drug therapy
CPT/HCPCS: 36415; 80053; 85025

== ENCOUNTER → 2018-08-24 | Outpatient (CLI) | payer MEDICARE, SELFPAY ==
[2018-05-02 03:18] VITALS: BMI 22.1
--- NOTE | 2018-08-24 11:56 | RAD_ITS ---
STUDY: X-RAY CHEST REASON FOR EXAM: Female, 72 years old. Fever and cough TECHNIQUE: PA and lateral views of the chest. COMPARISON: 05/03/2018 FINDINGS: There is hyperinflation of the lungs consistent with chronic obstructive lung disease (COPD). There is no demonstrated pleural abnormality. Normal size heart. Normal mediastinum and julio. Normal visualized pulmonary arteries. Normal visualized aortic arch and descending thoracic aorta. There are diffuse degenerative changes of the visualized thoracic spine. Old healed left humeral fracture There is no demonstrated abnormality of the visualized soft tissue structures of the upper abdomen. RAD/Chest PA and Lateral IMPRESSION: Hyperexpanded lungs with chronic interstitial changes, no superimposed acute pulmonary process. Electronically Signed: Gonzales Loomis MD at 15:19 EDT , Service support ,
[2018-08-24 13:09] LABS: Absolute Lymphocyte Count 1.13 X10^3/ul (0.83-4.51); Absolute Neutrophil Count 9.8 X10^3/uL (2.0-7.7); Basophil# 0.03 X10^3/uL; Basophil% 0.2 % (0-1); Eosinophil# 0.22 X10^3/uL; Eosinophils% 1.8 % (0-5); Hematocrit 34.6 % (37-47); Hemoglobin 11.1 g/dl (12.0-15.0); Lymphocyte # 1.13 X10^3/ul (4.0); Lymphocyte % 9.4 % (19-41); Mean Corp Hgb Conc 32.1 g/gl (32-36); Mean Corpuscular Volume 87.4 fL (81-99); Mean Platelet Vol. 9.2 fl (6.2-12.0); Monocyte# 0.88 X10^3/uL; Monocyte% 7.3 % (0-10); Neutrophil % 81.2 % (47-70); POSITIVE COUNT NO; POSITIVE DIFFERENTIAL NO; POSITIVE MORPHOLOGY NO; Platelet Count 373 K/mm3 (150-450); RBC Distribution Width CV 19.5 % (11.6-14.6); RBC Distribution Width SD 62.5 fl (35.1-43.9); Red Blood Count 3.96 M/mm3 (4.2-5.4); White Blood Count 12.1 K/mm3 (4.4-11.0)
[2018-08-24 13:21] LABS: Anion Gap 5 (5-15); BUN 13 mg/dL (7-18); BUN/Creat Ratio 14.3 RATIO (10-20); Chloride 108 mmol/L (98-107); Creatinine, Serum 0.91 mg/dL (0.55-1.02); EST Glomerular Filtration Rate 64 mL/min (>60); Est Glom Filt Rate - Afr Amer 78 mL/min (>60); Glucose 69 mg/dL (74-106); Potassium 4.8 mmol/L (3.5-5.1); Sodium Level 143 mmol/L (136-145); Thyroid Stim Hormone (TSH) 2.56 uIU/mL (0.358-3.74)
== END | disposition home or self-care (01) ==
LOC: MTLAB 11:54
PROVIDERS: Family Provider Family Medicine; PCP Family Medicine; Referring Provider Family Medicine; Visit Provider Family Medicine
DX: J44.9 Chronic obstructive pulmonary disease, unspecified (principal); R53.83 Other fatigue
CPT/HCPCS: 36415; 71046; 80048; 84443; 85025

== ENCOUNTER → 2018-10-04 | Outpatient (CLI) | payer MEDICARE, SELFPAY ==
[2018-09-10 11:16] VITALS: BMI 22.1
[2018-10-04 11:29] VITALS: PULSE 67; PULSE 71; PULSE 77; PULSE 87; PULSE 91; PULSE 92; PULSE 94; O2SAT 82; O2SAT 86; O2SAT 90; O2SAT 91; O2SAT 92
--- NOTE | 2018-10-04 11:31 | CPS ---
Pt arrived on room air and states she has oxygen at home but has not needed it for the last year. Pt required 3LNC during walk. Pt and daughter asked for small portable tank. Called Kassidy PABLO and she stated patient was seen at [facility] on September 09 and to send over walk results and she would send in order for conserving device.
--- NOTE | 2018-10-04 13:42 | PCM.PSN.6M ---
PSN 6 Minute Walk Test - 6 Minute Walk Test 6 Minute Walk Test: 6 Minute Walk Test PSN:6-Minute Walk Test Start: 10/04/18 11:28 Freq: Status: Active Protocol: [id number] Document 10/04/18 11:29 SMB (Rec: 10/04/18 11:34 SMB [id number]) 6 Minute Walk Test Date Performed 10/04/18 Time Performed 11:00 Height 5 ft 6 in Weight: 120 lb Weight in Pounds 120.[address]: Nick Conklin Assistive device used: None Pre-test Oxygen Delivery Method Room Air Pulse Ox (%) 91 Pulse Rate (60-100 beats/min) 87 Dyspnea Jg Scale (0-10) 0 Exertion Jg Scale (6-20) 11 1st minute Oxygen Flow Rate (L/min) (L/min) 2 Oxygen Delivery Method Nasal Cannula Pulse Ox (%) 82 Pulse Rate (60-100 beats/min) 77 2nd minute Oxygen Flow Rate (L/min) (L/min) 2 Oxygen Delivery Method Nasal Cannula Pulse Ox (%) 90 Pulse Rate (60-100 beats/min) 92 3rd minute Oxygen Flow Rate (L/min) (L/min) 2 Oxygen Delivery Method Nasal Cannula Pulse Ox (%) 90 Pulse Rate (60-100 beats/min) 91 4th minute Oxygen Flow Rate (L/min) (L/min) 2 Oxygen Delivery Method Nasal Cannula Pulse Ox (%) 86 Pulse Rate (60-100 beats/min) 71 5th minute Oxygen Flow Rate (L/min) (L/min) 3 Oxygen Delivery Method Nasal Cannula Pulse Ox (%) 90 Pulse Rate (60-100 beats/min) 67 6th minute Oxygen Flow Rate (L/min) (L/min) 3 Oxygen Delivery Method Nasal Cannula Pulse Ox (%) 90 Pulse Rate (60-100 beats/min) 71 Post-test Oxygen Flow Rate (L/min) (L/min) 3 Oxygen Delivery Method Nasal Cannula Pulse Ox (%) 92 Pulse Rate (60-100 beats/min) 94 Dyspnea Jg Scale (0-10) 3 Exertion Jg Scale (6-20) 14 Full Laps Walked 17 Partial Lap, Number of Tiles Walked 12 Total Distance Walked (ft) 1015 10/04/18 11:31 Cardiopulmonary Services by Butzer,Margaret M Pt arrived on room air and states she has oxygen at home but has not needed it for the last year. Pt required 3LNC during walk. Pt and daughter asked for small portable tank. Called Kassidy PABLO and she stated patient was seen at [facility] on September 09 and to send over walk results and she would send in order for conserving device. Initialized on 10/04/18 11:31 - END OF NOTE - Interpretation Interpretation: The patient ambulated 1015 feet over the course of 6 minutes beginning on room air without assistive devices or breaks. Pretesting oxygen saturation was noted to be 91% on room air. With ambulation, the patient did experience several episodes of oxygen desaturation requiring the initiation and subsequent increase in flow rate to 3 L/min with exertion. This testing did indicate the presence of significant exertional oxygen desaturation. - Recommendations Recommendations: 3 L/min of supplemental oxygen should be utilized with exertion.
== END | disposition home or self-care (01) ==
LOC: PSN 10:50
PROVIDERS: Family Provider Family Medicine; PCP Family Medicine; Referring Provider Internal Medicine Critical Care Medicine; Visit Provider Internal Medicine Critical Care Medicine
DX: J44.9 Chronic obstructive pulmonary disease, unspecified (principal); F17.211 Nicotine dependence, cigarettes, in remission
CPT/HCPCS: 94618

== ENCOUNTER → 2018-11-27 | Outpatient (CLI) | payer MEDICARE, SELFPAY ==
[2018-05-02 03:18] VITALS: BMI 22.1
[2018-09-10 11:16] VITALS: BMI 22.1
[2018-11-27 13:56] LABS: Absolute Lymphocyte Count 1.32 X10^3/uL (0.83-4.51); Absolute Neutrophil Count 3.7 X10^3/uL (2.0-7.7); Basophil# 0.03 X10^3/uL; Basophil% 0.5 % (0-1); Eosinophil# 0.12 X10^3/uL; Eosinophils% 2.1 % (0-5); Hematocrit 37.9 % (37-47); Hemoglobin 11.8 g/dL (12.0-15.0); Lymphocyte # 1.32 X10^3/ul (4.0); Lymphocyte % 22.7 % (19-41); Mean Corp Hgb Conc 31.1 g/dL (32-36); Mean Corpuscular Hgb 28.4 pg (27.0-32.0); Mean Corpuscular Volume 91.1 fL (81-99); Mean Platelet Vol. 10.7 fl (6.2-12.0); Monocyte# 0.59 X10^3/uL; Monocyte% 10.2 % (0-10); NRBC Flagged by Analyzer 0 % (0-5); Neutrophil # 3.74 X10^3/uL (2.7-7.7); Neutrophil % 64.3 % (47-70); Platelet Count 287 K/mm3 (150-450); RBC Distribution Width SD 57.1 fl (35.1-43.9); Red Blood Count 4.16 M/mm3 (4.2-5.4); White Blood Count 5.8 K/mm3 (4.4-11.0)
[2018-11-27 14:08] LABS: ALB/GLOB Ratio 0.9 RATIO (0.9-2.4); AST(SGOT) 14 U/L (15-37); Alanine Aminotransfer ALT/SGPT 22 U/L (13-56); Albumin, Serum 3.3 g/dL (3.2-5.0); Alkaline Phosphatase 110 U/L (45-117); Anion Gap 6 (5-15); BUN 13 mg/dL (7-18); BUN/Creat Ratio 14.1 RATIO (10-20); Calcium,Total 8.7 mg/dL (8.5-10.1); Chloride 106 mmol/L (98-107); Creatinine, Serum 0.92 mg/dL (0.55-1.02); EST Glomerular Filtration Rate 63 mL/min (>60); Est Glom Filt Rate - Afr Amer 76 mL/min (>60); Globulin 3.6 g/dL (2.2-4.2); Glucose 63 mg/dL (74-106); Potassium 4.4 mmol/L (3.5-5.1); Protein, Total 6.9 g/dL (6.4-8.2); Sodium Level 139 mmol/L (136-145)
== END | disposition home or self-care (01) ==
LOC: LAB.FUTURE 11:55
PROVIDERS: Family Provider Family Medicine; PCP Family Medicine; Referring Provider Internal Medicine Rheumatology; Visit Provider Internal Medicine Rheumatology
DX: M06.4 Inflammatory polyarthropathy (principal); Z79.899 Other long term (current) drug therapy; M15.9 Polyosteoarthritis, unspecified; Q66.7 Congenital pes cavus; J44.9 Chronic obstructive pulmonary disease, unspecified; F41.9 Anxiety disorder, unspecified; G47.00 Insomnia, unspecified
CPT/HCPCS: 36415; 80053; 85025

== ENCOUNTER 2020-05-25 18:31 | Inpatient (IN) | payer MEDICARE, MEDICAID, SELFPAY ==
[2018-09-10 11:16] VITALS: BMI 22.1
[2020-05-25 18:32] VITALS: BP 156/76; PULSE 75; RESP 16; TEMP 37.7; O2SAT 96; BMI 12.9
--- NOTE | 2020-05-25 18:46 | EKG12_ITS ---
Test Reason : AM EKG Blood Pressure : / mmHG Vent. Rate : 061 BPM Atrial Rate : 061 BPM P-R Int : 162 ms QRS Dur : 092 ms QT Int : 530 ms P-R-T Axes : 084 076 -47 degrees QTc Int : 533 ms Somatic / motion artifact Normal sinus rhythm ST & T wave abnormality, consider inferior ischemia Prolonged QT Abnormal ECG Confirmed by WANG ALVES, KALI ([id number]), marketing editor PINKY RAMOS ([id number]) on 05/26/2020 3:02:50 PM Referred By: AJ Confirmed By:KALI PIÑA MD
--- NOTE | 2020-05-25 18:47 | ED.VIS.GEN ---
History of Present Illness Chief Complaint: Shortness of Breath Narrative: 74-year-old female who presents with multiple complaints. Over the last 1 to 2 months she complains of decreased appetite, difficulty sleeping, nausea. She complains of dizziness which she describes as near syncope. No actual syncopal episodes. She denies any pain. She does complain of shortness of breath on exertion. She has a chronic cough. She have a history of COPD and continues to smoke. Her cough is at baseline. No fevers. She vomited once today but states she thinks this was my nerves. No diarrhea. No abdominal pain. Past Medical History - Allergies and Home Meds Allergies/Adverse Reactions: Allergies levofloxacin [From Levaquin] Allergy (Verified 05/25/20 18:32) severe ankle pain Primary Care Physician: Antelmo Logan MD [Primary Care Provider] - Past Medical History: - - COPD, anxiety Surgical History: no surgical history Smoking Status: Former smoker - Family History Paternal Family History: Reports: Unknown - She reported that she does not know her paternal family history. Maternal Family History: Reports: Cancer - Breast CA., Heart Disease, - Review of Systems All systems negative except as indicated General: Denies: Fever Eyes: Denies: Visual changes - bilaterally ENT: Denies: Bilateral ear pain Cardiovascular: Reports: - - Cina/near syncope. Denies: Chest pain Respiratory: Reports: Dyspnea, Cough. Denies: Sputum Gastrointestinal: Reports: Nausea, Vomiting. Denies: Abdominal pain, Diarrhea Musculoskeletal: Denies: Myalgias, Arthralgias Psych: Reports: - - Anxiety, - - Insomnia Hematologic: Denies: Easy bruising Allergy: Denies: Uticaria Physical Exam Vital Signs/Narrative: Vital Signs Temp Pulse Resp BP Pulse Ox 05/25/20 18:32 99.9 F H 75 16 156/76 H 96 Inital Vital Signs reviewed: Yes General: Well nourished Head: Normocephalic Eyes: EOMI ENT: Moist mucous membranes Neck: Supple Cardiovascular: Regular rate, Regular rhythm Respiratory: No distress, CTA bilaterally Abdomen: Soft, Nontender, Nondistended Skin: Normal color Neurological: Alert Psychological: - - Anxious Diagnostic/Tx/Re-eval Impressions Chest X-Ray 05/25/20 18:50 IMPRESSION: Hyperexpanded lungs with chronic interstitial changes, no superimposed acute pulmonary process Electronically Signed: Gonzales Loomis MD at 19:15 EST , Service support , 05/25/20 18:50 CXR [Chest 1 View (Portable)] [RAD] Stat 05/25/20 18:55 Mucosa - Nose SARS-CoV-2 Antigen (Rapid) - Final Laboratory Results 05/25/20 05/25/20 05/25/20 18:40 18:40 18:40 WBC 8.0 RBC 4.72 Hgb 12.1 Hct 39.1 MCV 82.8 MCH 25.6 L MCHC 30.9 L RDW Std Deviation 63.4 H RDW Coeff of Chetna 21.2 H Plt Count 220 MPV 10.8 Immature Gran % (Auto) 0.300 Neut % (Auto) 75.1 H Lymph % (Auto) 12.9 L [place] % (Auto) 11.0 H Eos % (Auto) 0.4 Baso % (Auto) 0.3 Absolute Neuts (auto) 6.0 Absolute Lymphs (auto) 1.03 Nucleated RBC % 0 Platelet Estimate ADEQUATE RBC Morphology N CHROM Anisocytosis 1+ PT 13.3 INR 1.1 Sodium 141 Potassium 3.6 Chloride 107 Carbon Dioxide 28.0 Anion Gap 6 BUN 21 H Creatinine 0.71 Estim Creat Clear Calc 27.85 Est GFR (MDRD) Af Amer 103 Est GFR (MDRD) Non-Af 85 BUN/Creatinine Ratio 29.7 H Glucose 100 Calcium 8.8 Troponin I 25.800 H* - Medical Decision Making KG shows sinus rhythm with inferior T wave inversions. ST segments are isoelectric. Patient has no chest pain at this time. Labs were obtained and notable for troponin of 25.8. I did speak to cardiology. Patient was given aspirin and Lovenox. She will be kept n.p.o. for possible heart catheterization tomorrow. She was discussed with Dr. Logan who is her primary care provider and the hospitalist roly. He agrees to admit. - Critical Care Time Critical care time (excluding procedures): 30-74 minutes, Discussing w/Consultants ED Disposition - Plan for ED Patient: Disposition: Acute Care Hospital [facility] Diagnosis: NSTEMI (non-ST elevated myocardial infarction) Referrals: Antelmo Logan MD [Primary Care Provider] -
[2020-05-25 18:48] VITALS: BP 156/76; PULSE 75; RESP 16; TEMP 37.7; O2SAT 96
--- NOTE | 2020-05-25 18:50 | RAD_ITS ---
STUDY: X-RAY CHEST REASON FOR EXAM: Female, 74 years old. Shortness of breath cough and dizziness TECHNIQUE: Single AP portable view of the chest. COMPARISON: 08/24/2018 FINDINGS: EKG leads overlie the chest There is a hyperexpanded with chronic interstitial changes, no superimposed acute pulmonary process. There is no demonstrated pleural abnormality. Normal size heart. Normal mediastinum and julio. Normal visualized pulmonary arteries. There is atherosclerotic calcification of the aortic arch with tortuosity. There are diffuse degenerative changes of the visualized thoracic spine. Normal visualized ribs, clavicles, and shoulders. There is no demonstrated abnormality of the visualized soft tissue structures of the upper abdomen. RAD/Chest 1 View (Portable) IMPRESSION: Hyperexpanded lungs with chronic interstitial changes, no superimposed acute pulmonary process Electronically Signed: Gonzales Loomis MD at 19:15 EST , Service support ,
[2020-05-25] MEDS: 0.9% Normal Saline 1,000 ML 999 ML IV (18:59)
[2020-05-25 19:10] LABS: Absolute Lymphocyte Count 1.03 X10^3/uL (0.83-4.51); Basophil# 0.02 X10^3/uL; Basophil% 0.3 % (0-1); Eosinophil# 0.03 X10^3/uL; Eosinophils% 0.4 % (0-5); Hematocrit 39.1 % (37-47); Hemoglobin 12.1 g/dL (12.0-15.0); Lymphocyte # 1.03 X10^3/ul (4.0); Lymphocyte % 12.9 % (19-41); Mean Corp Hgb Conc 30.9 g/dL (32-36); Mean Corpuscular Hgb 25.6 pg (27.0-32.0); Mean Corpuscular Volume 82.8 fL (81-99); Mean Platelet Vol. 10.8 fl (6.2-12.0); Monocyte# 0.88 X10^3/uL; NRBC Flagged by Analyzer 0 % (0-5); Neutrophil # 5.99 X10^3/uL (2.7-7.7); Neutrophil % 75.1 % (47-70); POSITIVE MORPHOLOGY YES; Platelet Count 220 K/mm3 (150-450); RBC Distribution Width CV 21.2 % (11.6-14.6); RBC Distribution Width SD 63.4 fl (35.1-43.9); Red Blood Count 4.72 M/mm3 (4.2-5.4)
[2020-05-25 19:22] LABS: Anion Gap 6 (5-15); BUN 21 mg/dL (7-18); BUN/Creat Ratio 29.7 RATIO (10-20); Calcium,Total 8.8 mg/dL (8.5-10.1); Chloride 107 mmol/L (98-107); Creatinine, Serum 0.71 mg/dL (0.55-1.02); EST Glomerular Filtration Rate 85 mL/min (>60); Est Glom Filt Rate - Afr Amer 103 mL/min (>60); Estimated Creatinine Clearance 27.85 ml/min; Glucose 100 mg/dL (74-106); Potassium 3.6 mmol/L (3.5-5.1); Sodium Level 141 mmol/L (136-145)
[2020-05-25 19:45] LABS: International Normalized Ratio 1.1; Prothrombin Time (Protime)PT. 13.3 SECONDS (11.7-14.9)
[2020-05-25 19:53] LABS: Differential Indicated SCAN CRITERIA MET
[2020-05-25 19:55] LABS: Anisocytosis 1+; Platelet Estimate ADEQUATE (ADEQ); Red Cell Morphology N CHROM NORMAL (NORM C&C)
[2020-05-25] MEDS: Aspirin 81 MG TAB.CHEW 324 MG PO (20:14)
--- NOTE | 2020-05-25 20:36 | PCM.HP.STD ---
Problem List (1) NSTEMI (non-ST elevated myocardial infarction) Status: Acute (2) Chronic hypoxemic respiratory failure Status: Chronic (3) Nicotine dependence, cigarettes, uncomplicated Status: Chronic (4) Depression Status: Chronic (5) Anxiety Status: Chronic History of Present Illness Date of Admission: 05/25/20 Chief Complaint: chest pain/ dizziness The patient is a 74 year old female patient with a significant past medical history of COPD and smoking presents to the emergency room with chest pain and dizziness. Onset of symptoms began 3 weeks ago and the patient has had loss of appetite associated with her chest pain. Today she began progressively dizzy and and worsening of the chest pain so that she came to the ER for further evaluation. Initial troponin is 25. Chest x-ray shows hyperinflation of the lungs. She is currently free of her chest pain and will be admitted to the progressive care unit and made n.p.o. for cardiac catheterization in the morning. Past Medical History Past Medical History (Chronic Problems): Chronic Problems (Last Reviewed 09/10/18 @ 10:51 by Montserrat Lyle) Chronic hypoxemic respiratory failure (Chronic) Nicotine dependence, cigarettes, in remission (Chronic) Nicotine dependence, cigarettes, uncomplicated (Chronic) Urinary tract infection with pyuria (Chronic) Arthritis (Chronic) Arthralgia of both knees (Chronic) Depression (Chronic) Hypoxia (Chronic) Edema (Chronic) Lumbar strain (Chronic) Blurred vision (Chronic) Anxiety (Chronic) COPD (chronic obstructive pulmonary disease) (Chronic) Tobacco use (Chronic) Anxiety and depression (Chronic) Medical History: Medical History (Last Reviewed 09/10/18 @ 10:51 by Montserrat Lyle) Urinary tract infection with pyuria (Chronic) N39.0 Arthritis (Chronic) M19.90 Arthralgia of both knees (Chronic) M25.561, M25.562 Depression (Chronic) F32.9 Hypoxia (Chronic) R09.02 Edema (Chronic) R60.9 Lumbar strain (Chronic) S39.012A Blurred vision (Chronic) H53.8 Anxiety (Chronic) F41.9 Community acquired pneumonia (Acute) J18.9 COPD (chronic obstructive pulmonary disease) (Chronic) J44.9 Tobacco use (Chronic) Z72.0 Anxiety and depression (Chronic) F41.8 Allergies levofloxacin [From Levaquin] Allergy (Verified 05/25/20 18:32) severe ankle pain Home Medications: Ambulatory Orders Medication Instructions Recorded Clonazepam [Klonopin] 0.5 mg PO BID 04/20/17 Aspirin [Aspirin, Baby] 81 mg PO DAILY@0800 05/02/18 Folic Acid 2 mg PO DAILY 05/02/18 Methotrexate Sodium [Methotrexate] 10 mg PO QWEEK 05/02/18 Nortriptyline HCl 100 mg PO QHS 05/02/18 Acetaminophen [Tylenol Tablet] 650 mg PO Q6H PRN PRN tab 05/04/18 Albuterol Sulfate [Ventolin Hfa] 2 puff INHALATION 4X/DAY #1 05/04/18 hfa.aer.ad Surgical History: no surgical history Psychiatric History: Anxiety, Depression 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 Maternal History Items: Cancer - Breast CA., Heart Disease, - Review of Systems Constitutional: Reports: Weakness, Fatigue. Denies: Chills, Fever, Weight Change HEENT: Denies: Head Aches, Sinus Congestion, Sinus Drainage Cardiovascular: Reports: Chest Pain. Denies: Palpitations Respiratory: Denies: Cough, Shortness of breath at rest, Sputum production Gastrointestinal: Denies: Abdominal Pain, Nausea, Vomiting Genitourinary: Denies: Dysuria Musculoskeletal: Denies: Joint Pain, Joint Tenderness Skin: Denies: Rash, Wounds Neurological: Denies: Numbness, Tingling, Focal weakness Psychiatric: Reports: Anxiety. Denies: Depression, Homicidal Ideations, Suicidal Ideations Hematologic/ Lymphatic: Denies: Easy Bruising, Easy Bleeding VTE Information - Inpt Only VTE Present on Admission: No VTE Mechan Device Prophylaxis: None VTE Pharm Prophylaxis ordered?: Yes Patient Problems: Active and Suspected Problems (Last Reviewed 09/10/18 @ 10:51 by Montserrat Lyle) NSTEMI (non-ST elevated myocardial infarction) (Acute) - Physical Exam Vitals/I&O's: Vital Signs Temp Pulse Resp BP Pulse Ox 99.9 F H 75 16 156/76 H 96 05/25/20 18:48 05/25/20 18:48 05/25/20 18:48 05/25/20 18:48 05/25/20 18:48 Oxygen Delivery Method Room Air Weight: 80 lb Body Mass Index (BMI) 12.9 Intake and Output for Last 24 Hours 05/23/20 05/24/20 05/25/20 23:59 23:59 23:59 Intake Total 1000 / 1000 Balance 1000 / 1000 General: Alert, Oriented x3, Cooperative HEENT: Atraumatic, Normocephalic Neck: Supple Lungs: No rhonchi, No wheeze, No rales, Diminished Cardiovascular: Regular rate, Normal S1, Normal S2, No murmurs Abdomen: Bowel Sounds Present, Soft Extremities: Capillary Refill Less than 3 Seconds Skin: No rashes Musculoskeletal: No Tenderness to Palpation of Joints or Extremities Neurological: Neuro grossly intact Psych/Mental Status: Normal Affect, Appropriate Microbiology Past 72 Hours 05/25/20 18:55 Mucosa - Nose SARS-CoV-2 Antigen (Rapid) - Final Laboratory Results 05/25/20 18:40: WBC 8.0, RBC 4.72, Hgb 12.1, Hct 39.1, MCV 82.8, MCH 25.6 L, MCHC 30.9 L, RDW Std Deviation 63.4 H, RDW Coeff of Chetna 21.2 H, Plt Count 220, MPV 10.8, Immature Gran % (Auto) 0.300, Neut % (Auto) 75.1 H, Lymph % (Auto) 12.9 L, [place] % (Auto) 11.0 H, Eos % (Auto) 0.4, Baso % (Auto) 0.3, Absolute Neuts (auto) 6.0, Absolute Lymphs (auto) 1.03, Nucleated RBC % 0, Platelet Estimate ADEQUATE, RBC Morphology N CHROM, Anisocytosis 1+ 05/25/20 18:40: Sodium 141, Potassium 3.6, Chloride 107, Carbon Dioxide 28.0, Anion Gap 6, BUN 21 H, Creatinine 0.71, Estim Creat Clear Calc 27.85, Est GFR (MDRD) Af Amer 103, Est GFR (MDRD) Non-Af 85, BUN/Creatinine Ratio 29.7 H, Glucose 100, Calcium 8.8, Troponin I 25.800 H* 05/25/20 18:40: PT 13.3, INR 1.1 Assessment/Plan All Active Problems (Last Reviewed 09/10/18 @ 10:51 by Montserrat Lyle) NSTEMI (non-ST elevated myocardial infarction) (Acute) Community acquired pneumonia (Acute) Chronic Problems (Last Reviewed 09/10/18 @ 10:51 by Montserrat Lyle) Chronic hypoxemic respiratory failure (Chronic) Nicotine dependence, cigarettes, in remission (Chronic) Nicotine dependence, cigarettes, uncomplicated (Chronic) Urinary tract infection with pyuria (Chronic) Arthritis (Chronic) Arthralgia of both knees (Chronic) Depression (Chronic) Hypoxia (Chronic) Edema (Chronic) Lumbar strain (Chronic) Blurred vision (Chronic) Anxiety (Chronic) COPD (chronic obstructive pulmonary disease) (Chronic) Tobacco use (Chronic) Anxiety and depression (Chronic) Plan 1. Chest pain/elevated troponin?admit to progressive care unit, make patient n.p.o. start IV fluids for maintenance, CBC BMP, cycle cardiac enzymes, nitroglycerin, oxygen, morphine and aspirin per routine protocol. Consult Dr. Evans for cardiac catheterization in the morning 2. Nicotine dependence?cessation encouraged 3. Depression?continue home medications 4. DVT prophylaxis?low molecular weight heparin Inpatient E&M: 89981 Init Hosp L3
[2020-05-25] MEDS: Enoxaparin 40 MG/0.4 ML Syringe SC (20:46)
[2020-05-25 20:48] VITALS: BP 113/90; PULSE 66; RESP 18; TEMP 36.9; O2SAT 94
[2020-05-25 21:20] VITALS: BP 105/53; PULSE 74; RESP 16; TEMP 36.8; O2SAT 100
[2020-05-25 21:26] VITALS: PULSE 61; BMI 16.0
[2020-05-25] MEDS: clonazePAM 0.5 MG Tablet PO (22:16)
[2020-05-25] MEDS: Nortriptyline 25 MG Capsule 100 MG PO (22:17)
[2020-05-25] MEDS: 0.9% Normal Saline 1,000 ML 125 ML IV (22:27)
[2020-05-26] VITALS (23 sets, daily range): BP systolic 94–135; BP diastolic 43–83; PULSE 57–84; RESP 16–22; TEMP 36.6–37.1; O2SAT 92–100; BMI 16.0
[2020-05-26] MEDS: Ondansetron 4 MG/2 ML Vial IV ×2 (01:08→17:34)
--- NOTE | 2020-05-26 05:55 | EKG12_ITS ---
Test Reason : SOB Blood Pressure : / mmHG Vent. Rate : 060 BPM Atrial Rate : 060 BPM P-R Int : 160 ms QRS Dur : 092 ms QT Int : 468 ms P-R-T Axes : 077 080 -24 degrees QTc Int : 468 ms Normal sinus rhythm T wave abnormality, consider inferior ischemia Abnormal ECG Confirmed by WANG ALVES, KALI ([id number]), publications editor PINKY RAMOS ([id number]) on 05/27/2020 11:15:06 AM Referred By: FLORENCIO Confirmed By:KALI PIÑA MD
[2020-05-26] MEDS: Aspirin 81 MG TAB.CHEW PO (06:13)
[2020-05-26] MEDS: 0.9% Normal Saline 1,000 ML 125 ML IV (06:46)
[2020-05-26 06:56] LABS: Absolute Lymphocyte Count 0.77 X10^3/uL (0.83-4.51); Absolute Neutrophil Count 3.8 X10^3/uL (2.0-7.7); Basophil# 0.02 X10^3/uL; Basophil% 0.4 % (0-1); Eosinophil# 0.01 X10^3/uL; Eosinophils% 0.2 % (0-5); Hematocrit 33.3 % (37-47); Hemoglobin 9.9 g/dL (12.0-15.0); Lymphocyte # 0.77 X10^3/ul (4.0); Lymphocyte % 15.3 % (19-41); Mean Corp Hgb Conc 29.7 g/dL (32-36); Mean Corpuscular Hgb 24.9 pg (27.0-32.0); Mean Corpuscular Volume 83.7 fL (81-99); Mean Platelet Vol. 11.1 fl (6.2-12.0); Monocyte# 0.44 X10^3/uL; Monocyte% 8.7 % (0-10); NRBC Flagged by Analyzer 0 % (0-5); Neutrophil # 3.78 X10^3/uL (2.7-7.7); Neutrophil % 75.2 % (47-70); POSITIVE MORPHOLOGY YES; Platelet Count 154 K/mm3 (150-450); RBC Distribution Width CV 21.1 % (11.6-14.6); RBC Distribution Width SD 63.2 fl (35.1-43.9); Red Blood Count 3.98 M/mm3 (4.2-5.4)
[2020-05-26 06:57] LABS: Differential Indicated SCAN CRITERIA MET
[2020-05-26 07:10] LABS: International Normalized Ratio 1.2; Prothrombin Time (Protime)PT. 14.5 SECONDS (11.7-14.9)
[2020-05-26 07:29] LABS: Anion Gap 7 (5-15); BUN 18 mg/dL (7-18); BUN/Creat Ratio 33.6 RATIO (10-20); Calcium,Total 7.8 mg/dL (8.5-10.1); Chloride 112 mmol/L (98-107); Creatinine, Serum 0.54 mg/dL (0.55-1.02); EST Glomerular Filtration Rate 118 mL/min (>60); Est Glom Filt Rate - Afr Amer 143 mL/min (>60); Estimated Creatinine Clearance 34.57 ml/min; Glucose 73 mg/dL (74-106); Magnesium 1.9 mg/dL (1.6-2.6); Phosphorus 2.9 mg/dL (2.5-4.9); Potassium 3.6 mmol/L (3.5-5.1); Sodium Level 142 mmol/L (136-145); Thyroid Stim Hormone (TSH) 0.67 uIU/mL (0.358-3.74)
--- NOTE | 2020-05-26 07:37 | ECHOD_ITS ---
Reason For Study: CAD/ASHD Procedure This was a 2D Doppler, Color Flow transthoracic echocardiogram. Exam performed portable in patient room. Left Ventricle Normal LV size. The estimated ejection fraction is 40 %. Moderate segmental systolic dysfunction (see wall motion). Mid-Inferior: Severely Hypokinetic. Infero-Basal: Akinetic. Basal inferoseptal: Akinetic. Posterior-Basal: Hypokinetic. Mid-Posterior: Hypokinetic. The rest of the wall segments are normal. Right Ventricle Normal RV size. Normal systolic function. Atria Normal left atrium. Normal right atrium. Mitral Valve Normal mitral valve. Mild (1+) eccentric mitral valve insufficiency. Tricuspid Valve Normal tricuspid valve. Mild to moderate (1-2+) tricuspid valve insufficiency. Pulmonary artery systolic pressure is 42 mmHg. Aortic Valve Normal aortic valve. Trisinus/trileaflet aortic valve. Pulmonic Valve Normal pulmonic valve. Mild (1+) pulmonic valve insufficiency. Great Vessels Normal aortic root. The pulmonary artery is normal size. Normal inferior vena cava. Pericardium/Pleural No pericardial effusion. MMode/2D Measurements & Calculations LVIDd: 4.1 cm IVSd: 0.83 cm LA dimension: 3.9 cm LVIDs: 3.3 cm LVPWd: 1.2 cm RVDd: 3.8 cm FS: 20.8 % LAV(MOD-bp): 37.1 ml LVAd ap4: 19.4 cm2 SV(MOD-sp4): 21.4 ml LAV(MOD-bp) Indexed: 25.0 ml/m2 EDV(MOD-sp4): 47.2 ml LAV(MOD-sp2): 37.0 ml EDV(sp4-el): 49.1 ml LAV(MOD-sp4): 37.0 ml LVAs ap4: 12.9 cm2 ESV(MOD-sp4): 25.9 ml ESV(sp4-el): 26.0 ml EF(MOD-sp4): 45.2 % EF(sp4-el): 47.1 % SV(sp4-el): 23.2 ml LA A4 area: 14.5 cm2 RA A4 area: 13.6 cm2 Time Measurements MV dec time: 0.28 sec Doppler Measurements & Calculations MV E max soraida: 83.6 cm/sec MV V2 max: 97.4 cm/sec MV P1/2t max soraida: 90.4 cm/sec MV A max soraida: 99.8 cm/sec MV max P.8 mmHg MV P1/2t: 82.3 msec MV E/A: 0.84 MV V2 mean: 51.7 cm/sec MV mean P.3 mmHg MV dec slope: 321.7 cm/sec2 MV V2 VTI: 35.7 cm MVA(P1/2t): 2.7 cm2 Ao V2 max: 142.7 cm/sec LV V1 max: 120.8 cm/sec MR max soraida: 352.0 cm/sec Ao max P.1 mmHg LV V1 max P.8 mmHg MR max P.6 mmHg PA V2 max: 65.8 cm/sec TR max soraida: 306.5 cm/sec TR max P.6 mmHg Interpretation Summary Normal LV size. The estimated ejection fraction is 40 %. Moderate segmental systolic dysfunction (see wall motion). Mild (1+) eccentric mitral valve insufficiency. Pulmonary artery systolic pressure is 42 mmHg. Ordering Physician: Presley Evans Referring Physician: KALI ROCHA Performed By: Romeo Bauer RCS
--- NOTE | 2020-05-26 07:44 | CON.PCM_ITS ---
Reason for Consult Date of Consultation: 05/26/20 Reason for Consultation: Abnormal cardiac enzymes History of Present Illness: The patient is a 74 year old F with a previous medical history of COPD, anxiety disorder who presented to the emergency room with a months duration of not fe eling well. She has rather nonspecific symptoms including some dizziness and some vague chest heaviness and presented to the emergency room. She was noted to have an abnormal EKG as well as an abnormal cardiac troponin test. She had also complained of some diarrhea in the preceding few weeks. She has had no chest discomfort suggestive of angina. She has had no syncope no presyncope and no pedal edema. She denies a cough or paroxysmal nocturnal dyspnea. Cardiology was called to see her because of her abnormal cardiac troponin test. [] Past Medical History Allergies/Adverse Reactions: Allergies levofloxacin [From Levaquin] Allergy (Verified 05/25/20 18:32) severe ankle pain Home Medications: Ambulatory Orders Medication Instructions Recorded Clonazepam [Klonopin] 0.5 mg PO BID 04/20/17 Aspirin [Aspirin, Baby] 81 mg PO DAILY@0800 05/02/18 Folic Acid 2 mg PO DAILY 05/02/18 Methotrexate Sodium [Methotrexate] 10 mg PO QWEEK 05/02/18 Nortriptyline HCl 100 mg PO QHS 05/02/18 Acetaminophen [Tylenol Tablet] 650 mg PO Q6H PRN PRN tab 05/04/18 Albuterol Sulfate [Ventolin Hfa] 2 puff INHALATION 4X/DAY 05/25/20 Leflunomide 20 mg PO 05/25/20 Meloxicam 15 mg DAILY 05/25/20 Prednisone 20 mg DAILY 05/25/20 Past Medical History (Chronic Problems): Chronic Problems (Last Reviewed 09/10/18 @ 10:51 by Montserrat Lyle) Chronic hypoxemic respiratory failure (Chronic) Nicotine dependence, cigarettes, in remission (Chronic) Nicotine dependence, cigarettes, uncomplicated (Chronic) Urinary tract infection with pyuria (Chronic) Arthritis (Chronic) Arthralgia of both knees (Chronic) Depression (Chronic) Hypoxia (Chronic) Edema (Chronic) Lumbar strain (Chronic) Blurred vision (Chronic) Anxiety (Chronic) COPD (chronic obstructive pulmonary disease) (Chronic) Tobacco use (Chronic) Anxiety and depression (Chronic) Surgical History: no surgical history Psychiatric History: Anxiety, Depression [employer] History: No pertinent [employer] history - *Family History Paternal History Items: Unknown - She reported that she does not know her paternal family history. Maternal History Items: Cancer - Breast CA., Heart Disease, - Smoking Status: Current every day smoker Tobacco Use: Cigarettes Alcohol: None Drugs: None Review of Systems - Review of Systems General: Denies: Fever, Night Sweats, Fatigue HEENT: Denies: Vision Change Cardiovascular: Reports: Shortness of Breath, Dizziness. Denies: Chest Discomfort, Orthopnea, PND, Peripheral Edema, Palpitations, Lightheadedness, Near Syncope, Syncope Respiratory: Denies: Cough, Sputum Production, Hemoptysis Gastrointestinal: Denies: Hematemesis, Hematochezia, Melena Genitourinary: Denies: Dysuria, Hematuria Skin: Denies: Rash Neurological: Reports: Dizziness Psychiatric: Denies: Anxiety Endocrine: Reports: Unexplained Weight Loss Hematologic/ Lymphatic: Reports: Anemia Subjectve: Cachectic looking lady in no distress Objective: Vital Signs Temp Pulse Resp BP Pulse Ox 98.3 F 62 18 102/55 L 96 05/26/20 06:09 05/26/20 07:00 05/26/20 06:09 05/26/20 06:09 05/26/20 06:09 Oxygen Delivery Method Room Air Weight: 99 lb 5 oz Body Mass Index (BMI) 16.0 Intake and Output for Last 24 Hours 05/24/20 05/25/20 05/26/20 23:59 23:59 23:59 Intake Total 1000 / 1000 1000 / 1000 Balance 1000 / 1000 1000 / 1000 General: Awake, Alert, Oriented x 3 HEENT: PERRL, EOMI, Sclera Non Icteric Neck: Supple, Good ROM, No Lymph Node Enlargement Lungs: Clear to auscultation Cardiovascular: Regular Rhythm, Normal S1, Normal S2, No Murmurs, No Rubs, No Gallops Vascular: No Carotid Bruits, Normal Femoral Pulses, Normal Radial Pulses, Normal Dorsalis Pedal Pulse, Normal Posterior Tibial Pulses Abdomen: Bowel Sounds Present, Soft, Non Tender, No HSM, No Organomegaly Extremities: No Cyanosis, No Clubbing, No edema Musculoskeletal: No Erythema Skin: No Rashes Lymphatic: No Lymph Node Enlargement Neurological: No Focal Motor or Sensory Deficit Psych/Mental Status: Appropriate 05/25/20 18:40: WBC 8.0, RBC 4.72, Hgb 12.1, Hct 39.1, MCV 82.8, MCH 25.6 L, MCHC 30.9 L, Plt Count 220, MPV 10.8, Immature Gran % (Auto) 0.300, Neut % (Auto) 75.1 H, Lymph % (Auto) 12.9 L, [place] % (Auto) 11.0 H, Eos % (Auto) 0.4, Baso % (Auto) 0.3, Absolute Neuts (auto) 6.0, Nucleated RBC % 0 05/25/20 18:40: Sodium 141, Potassium 3.6, Chloride 107, Carbon Dioxide 28.0, Anion Gap 6, BUN 21 H, Creatinine 0.71, Est GFR (MDRD) Af Amer 103, Est GFR (MDRD) Non-Af 85, BUN/Creatinine Ratio 29.7 H, Glucose 100, Calcium 8.8, Troponin I 25.800 H* 05/25/20 18:40: PT 13.3, INR 1.1 05/25/20 22:31: Troponin I 22.100 H* 05/26/20 00:56: Troponin I 20.600 H* 05/26/20 06:30: WBC 5.0, RBC 3.98 L, Hgb 9.9 L, Hct 33.3 L, MCV 83.7, MCH 24.9 L , MCHC 29.7 L, Plt Count 154, MPV 11.1, Immature Gran % (Auto) 0.200, Neut % (Auto) 75.2 H, Lymph % (Auto) 15.3 L, [place] % (Auto) 8.7, Eos % (Auto) 0.2, Baso % (Auto) 0.4, Absolute Neuts (auto) 3.8, Nucleated RBC % 0 05/26/20 06:30: PT 14.5, INR 1.2 05/26/20 06:30: Sodium 142, Potassium 3.6, Chloride 112 H, Carbon Dioxide 23.0, Anion Gap 7, BUN 18, Creatinine 0.54 L, Est GFR (MDRD) Af Amer 143, Est GFR (MDRD) Non-Af 118, BUN/Creatinine Ratio 33.6 H, Glucose 73 L, Calcium 7.8 L, Phosphorus 2.9, Magnesium 1.9 Rhythm: EKG: Normal sinus rhythm with T wave inversions noted inferiorly ECHO: Stress Test: Cardiac Cath: PCI: CT Surgery: Holter monitor: EPS: PPM: CXR: Chest CT Scan: Assessment/Plan 1. Non-ST elevation myocardial infarction * Patient presents with vague symptoms and is noted to have a non-ST elevation myocardial infarction. * Recommendation at this time would be to proceed with a cardiac catheterization. The risk benefits and alternatives have been explained to her she understands and agrees to proceed. Depending on the findings further recommendations will be made. * We recommend continuing aspirin * High intensity statin * Low-dose beta-dilma * * Addendum:: Cardiac catheterization today demonstrated the following: Normal left main coronary artery. Left anterior descending artery with moderate 50% proximal stenosis and left to right collaterals. Left circumflex artery with mild diffuse disease and left to right collaterals. Nondominant right coronary artery totally occluded in the midsegment. Left ventricular systolic dysfunction estimated EF 40% with an akinetic basal and mid inferior zone. Based on the above angiographic findings the patient will be treated with aggressive medical therapy. * * Thank you for allowing me to participate in the care of your patient. Please don't hesitate to call if any issues arise.
--- NOTE | 2020-05-26 08:08 | PCM.PN.HOSP ---
Patient Problems: Active and Suspected Problems (Last Reviewed 09/10/18 @ 10:51 by Montserrat Lyle) NSTEMI (non-ST elevated myocardial infarction) (Acute) Reason for Visit: Acute non-ST segment elevation [place] Subjective: Patient is a 74-year-old lady who presented with chest discomfort and dizziness. Found to have markedly elevated troponin consistent with acute non-ST elevation [place] admitted to monitored bed treatment initiated per protocol with consultation placed to cardiology Objective: GENERAL: cooperative HEENT: Atraumatic; EYES; Anicteric, Normal Conjunctiva NECK; supple, normal thyroid, RESPIRATORY: Diminished to auscultation CARDIOVASCULAR: Regular S1 S2, GI: soft, normoactive bowel sounds, : No Renal angle tenderness; EXTREMITIES: No edema, no clubbing, MUSCULOSKELETAL: no muscle waisting NEURO: Awake; no lateralizing signs. SKIN: No Rash PSYCH; Flat affect Vitals/I&O's: Vital Signs Temp Pulse Resp BP Pulse Ox 98.3 F 62 18 102/55 L 96 05/26/20 06:09 05/26/20 07:00 05/26/20 06:09 05/26/20 06:09 05/26/20 06:09 Oxygen Delivery Method Room Air Weight: 45.047 kg Body Mass Index (BMI) 16.0 Intake and Output for Last 24 Hours 05/24/20 05/25/20 05/26/20 23:59 23:59 23:59 Intake Total 1000 / 1000 1137.5 / 1137.5 Balance 1000 / 1000 1137.5 / 1137.5 Microbiology Past 72 Hours 05/25/20 18:55 Mucosa - Nose SARS-CoV-2 Antigen (Rapid) - Final Laboratory Results 05/25/20 18:40: WBC 8.0, RBC 4.72, Hgb 12.1, Hct 39.1, MCV 82.8, MCH 25.6 L, MCHC 30.9 L, RDW Std Deviation 63.4 H, RDW Coeff of Chetna 21.2 H, Plt Count 220, MPV 10.8, Immature Gran % (Auto) 0.300, Neut % (Auto) 75.1 H, Lymph % (Auto) 12.9 L, [place] % (Auto) 11.0 H, Eos % (Auto) 0.4, Baso % (Auto) 0.3, Absolute Neuts (auto) 6.0, Absolute Lymphs (auto) 1.03, Nucleated RBC % 0, Platelet Estimate ADEQUATE, RBC Morphology N CHROM, Anisocytosis 1+ 05/25/20 18:40: Sodium 141, Potassium 3.6, Chloride 107, Carbon Dioxide 28.0, Anion Gap 6, BUN 21 H, Creatinine 0.71, Estim Creat Clear Calc 27.85, Est GFR (MDRD) Af Amer 103, Est GFR (MDRD) Non-Af 85, BUN/Creatinine Ratio 29.7 H, Glucose 100, Calcium 8.8, Troponin I 25.800 H* 05/25/20 18:40: PT 13.3, INR 1.1 05/25/20 22:31: Troponin I 22.100 H* 05/26/20 00:56: Troponin I 20.600 H* 05/26/20 06:30: WBC 5.0, RBC 3.98 L, Hgb 9.9 L, Hct 33.3 L, MCV 83.7, MCH 24.9 L, MCHC 29.7 L, RDW Std Deviation 63.2 H, RDW Coeff of Chetna 21.1 H, Plt Count 154, MPV 11.1, Immature Gran % (Auto) 0.200, Neut % (Auto) 75.2 H, Lymph % (Auto) 15.3 L, [place] % (Auto) 8.7, Eos % (Auto) 0.2, Baso % (Auto) 0.4, Absolute Neuts (auto) 3.8, Absolute Lymphs (auto) 0.77 L, Nucleated RBC % 0 05/26/20 06:30: PT 14.5, INR 1.2 05/26/20 06:30: Sodium 142, Potassium 3.6, Chloride 112 H, Carbon Dioxide 23.0, Anion Gap 7, BUN 18, Creatinine 0.54 L, Estim Creat Clear Calc 34.57, Est GFR (MDRD) Af Amer 143, Est GFR (MDRD) Non-Af 118, BUN/Creatinine Ratio 33.6 H, Glucose 73 L, Calcium 7.8 L, Phosphorus 2.9, Magnesium 1.9, TSH 0.67 Current Medications Acetaminophen (Acetaminophen 325 Mg Tablet) 650 mg PO Q6H PRN PRN PRN Reason: HEADACHE (1-10)/FEVER (T>100F) Aspirin (Aspirin 81 Mg Tab.Chew) 81 mg PO DAILY@0800 [facility] Last Admin: 05/26/20 06:13 Dose: 81 mg Documented by: Clonazepam (Clonazepam 0.5 Mg Tablet) 0.5 mg PO BID [facility] Last Admin: 05/25/20 22:16 Dose: 0.5 mg Documented by: Sodium Chloride () 1,000 mls @ 0 mls/hr IV .Q0M CAROLEE Sodium Chloride () 1,000 mls @ 75 mls/hr IV .[id number] [facility] Last Infusion: 05/26/20 07:52 Dose: 75 mls/hr Documented by: Sodium Chloride () 250 mls @ 15 mls/hr IV .[id number] PRN PRN Reason: Saline Flush Sodium Chloride () 250 mls @ 15 mls/hr IV .[id number] PRN PRN Reason: Additional IVPB Infusion Sodium Chloride () 1,000 mls @ 0 mls/hr IV .Q0M [facility] Morphine Sulfate (Morphine 2 Mg/Ml Syringe) 2 mg IV Q3H PRN PRN PRN Reason: Pain Score 6-10 Nitroglycerin (Nitroglycerin (Inpatient Use) 0.4 Mg Tab.Subl) 0.4 mg SUBLINGUAL Q5M PRN PRN Reason: CARDIAC/CHEST PAIN Nortriptyline HCl (Nortriptyline 25 Mg Capsule) 100 mg PO QHS [facility] Last Admin: 05/25/20 22:17 Dose: 100 mg Documented by: Ondansetron HCl (Ondansetron 4 Mg/2 Ml Vial) 4 mg IV Q8H PRN PRN PRN Reason: NAUSEA/VOMITING Last Admin: 05/26/20 01:08 Dose: 4 mg Documented by: Sodium Chloride (0.9% Saline Lock 10 Ml Syringe) 10 - 40 ml IV UD PRN PRN Reason: SALINE FLUSH STROKE Vital Signs/Narrative: Vital Signs Temp Pulse Resp BP Pulse Ox 05/26/20 07:00 62 05/26/20 06:09 98.3 F 64 18 102/55 L 96 Medical Necessity - Tobacco Use Smoking Status: Current every day smoker Tobacco Use: Cigarettes Assessment/Plan All Active Problems (Last Reviewed 09/10/18 @ 10:51 by Montserrat Lyle) NSTEMI (non-ST elevated myocardial infarction) (Acute) Community acquired pneumonia (Acute) Patient is a 74-year-old lady who presented with chest discomfort and dizziness. Found to have markedly elevated troponin consistent with acute non-ST elevation [place] admitted to monitored bed treatment initiated per protocol with consultation placed to cardiology 1. Acute non-ST segment elevation [place]? patient admitted to a monitored bed treatment initiated per protocol with consultation placed to cardiology. Patient underwent left heart catheterization significant findings included mid RCA occlusion patient however was found to have collateral flow from left to right. Case was discussed with Dr. Bui with cardiology he recommended optimization of medical therapy 2. Anemia - Secondary to chronic disorder monitoring H&H and transfuse if patient becomes symptomatic or hemoglobin falls below 7 3. Depression with anxiety -Continue with home meds 4. Arthralgia ?Pain meds as needed 5. Tobacco dependence - Counseled on cessation, offered nicotine patch for tobacco cravings Advance planning; did discuss with the patient regarding advanced directives as well as CODE STATUS. Did explain the various scenarios involved ( FULL CODE, DNR CCA, DNR CCA with no intubation, and DNR CC and what each meant) patient elected full code with CPR and intubation if warranted. Order was placed. Time spent on discussion 18 minutes. Inpatient E&M: 42402 [facility] L[facility] Procedures: 59610 Advncd Care Plan 30 Min
--- NOTE | 2020-05-26 09:40 | CL.D_ITS ---
Patient Name: MICHELA FOOTE Study Date: 05/26/2020 Performing: Presley Evans MD Ht: 66.14 inches 168 cm : 1945 Wt: 99.2 lbs 45 kg Age: 74 Gender: female BSA: 1.49 PROCEDURE(S) PERFORMED [id number]/LV CLINICAL PROFILE AND INDICATIONS Indications: ACS <= 24 hrs Heart Failure: None Stress/Imaging Stress/Image Study Performed: No CONCLUSIONS Coronary disease with a totally occluded right coronary artery and left to right collaterals in a cod ominant vessel. Severe left ventricular systolic inferior wall dysfunction with a global ejection fr action of 40%. Akinetic inferior wall. RECOMMENDATIONS Medical therapy DESCRIPTION OF PROCEDURE The patient arrived to the procedure lab. The risks and benefits of the procedure as well as a full d escription of our services here and current unavailability of surgical backup were fully explained to the patient and/or their significant other prior to the catheterization. The Timeout was completed, verifying the correct patient and procedure. The patient's procedural site was prepped and draped in the usual fashion. Local anesthetic was given subcutaneously to right radial region with Lidocaine 2% . Local anesthetic was given subcutaneously to right groin region with Lidocaine 2%. Using a modified Seldinger technique, arterial access was obtained via the right radial artery, a 6Fr sheath was inse rted., arterial access was obtained via the right femoral artery, a 5Fr sheath was inserted. Left Co ronary Artery selective angiography was performed in multiple views using a 5 Fr. JL4 catheter. Right Coronary Artery selective angiography was then performed in multiple views using a 5 Fr. 3DRC (Ken) catheter. Left Ventriculography was performed in CADET projection using a 5 Fr. Pigtail catheter. LV to AO pullback pressures were then recorded.The arterial sheath was pulled and a TR Ban d was applied for hemostasis 12cc air inserted CORONARY ANGIOGRAPHY DOMINANCE: Co- Dominant LEFT HEART ASSESSMENT Left Ventricular Ejection Fraction: by LV Gram 40 % Inferior Basal Akinesis. Inferior Mid Akinesis LEFT MAIN: Mild calcification, Mild luminal irregularities LEFT ANTERIOR DESCENDING ARTERY: PROX LAD: Moderate luminal irregularities up to 50% DISTAL LAD: Mild luminal irregularities CIRCUMFLEX ARTERY: Mild luminal irregularities less than 30% RIGHT CORONARY ARTERY: MID RCA: is occluded COLLATERAL FLOW: Collateral flow from Left to Right AORTIC ROOT: Dilated COMPLICATIONS No Complications PROCEDURE MEDICATIONS Fentanyl 25 mcg IV Versed 0.5 mg IV Fentanyl 25 mcg IV Versed 0.5 mg IV Fentanyl 25 mcg IV Oxygen: 2 L/min via nasal cannula Heparin diluted in 23cc Heparinized saline. Patient given 10cc IA of this solution. 05/26/2020 08:38: 50 Heparin diluted in 23cc Heparinized saline. Patient given 10cc IA of this solution. 05/26/2020 08:38: 50 Verapamil 2.5mg, Ntg 100mcgs, 2000 units of Heparin diluted in 23cc Heparinized saline. Patient give n 10cc IA of this solution. 05/26/2020 08:38:50 SUMMARY OF HEMODYNAMIC DATA Time AIR REST ECG 08:15:32 Art 101/53 (70) 08:45:29 Art 112/56 (77) 08:46:40 Art 125/61 (85) 08:52:08 AO 151/60 (88) SA 09:12:47 LV 155/6, 17 09:21:37 LV 161/7, 23 09:21:43 LV 165/13, 24 09:23:58 LVp 163/11, 27 09:24:01 AOp 168/68 (103) 09:24:06 Signed By Presley Evans MD On 05/26/2020 9:39:31 AM Presley Evans MD
[2020-05-26] MEDS: 0.9% Saline Lock 10 ML Syringe IV ×2 (10:41→17:34)
[2020-05-26] MEDS: Metoprolol Tartrate 25 MG Tablet PO ×2 (11:25→22:07)
[2020-05-26] MEDS: clonazePAM 0.5 MG Tablet PO ×2 (11:25→20:20)
[2020-05-26] MEDS: Acetaminophen 325 MG Tablet 650 MG PO (11:26)
--- NOTE | 2020-05-26 13:32 | CASEMGMT ---
AMA ORTIZ assessment: Face to Face with patient for initial transition planning/care coordination assessment. AMA ORTIZ introduced self and role at [facility], pt voices understanding and consents to assessment at this time. Pt is lying in bed in no distress at this time. Pt is A/Ox4 at this time and answers all questions appropriately at this time. Care providers, pharmacy, and demographics verified/updated at this time. Presentation: SOB, dizziness, weakness, PEÑA Admitting dx: NSTEMI PCP: [facility] Specialists: Pt states no current specialists at this time. Preferred Pharmacy: [facility] [place] Insurance: [facility] A/B, [facility] Prescription Benefit: EVELYN Living Will/HPOA: Pt states does not have LW/HPOA and declines AD info at this time. LNOK: Sisi Garcia, daughter; Lian Hall, niece Living Arrangements: Pt states lives alone but daughter stays with her most of time in 1 story home with 3 steps in and states no concerns at home at this time. Pt states is independent with ADL's. Transportation: Pt states drives self and states no transportation concerns at this time. DME/HHC: Pt states has grab bars, shower chair, and is on 2L prn home oxygen but is unsure of which company. Pt states no hx of HHC or SNF in the past. Pt states no concerns with going home at time of discharge. Pt states is retired. Pt states smokes 1.5packs of cigarettes daily and does not drink ETOH. Pt states no further concerns/needs at this time. CM to follow for any further discharge planning/needs. Advised pt to ask for CM if any further questions/concerns/needs arise, voices understanding. Pt Goal: Home Plan: Home [place] AMA ORTIZ
--- NOTE | 2020-05-26 15:32 | NURSING ---
VS and bedrest completed, patient ambulated in halls. Right groin site soft to touch, no pain noted.
--- NOTE | 2020-05-26 16:55 | PCM.NTREPORT ---
Nutrition Therapy Report - History Nutrition Services has been consulted to:: Manage nutrient details of diet order Current diet / nutrition support order:: Cardiac - Anthropometric Measurements Height:: 5 ft 6 in Weight:: 45.047 kg Body Mass Index (BMI):: 16.0 - Relevant Labs Relevant Labs:: RBC 3.98 M/mm3 (4.2-5.4) L 05/26/20 06:30 Hgb 9.9 g/dL (12.0-15.0) L 05/26/20 06:30 Hct 33.3 % (37-47) L 05/26/20 06:30 MCH 24.9 pg (27.0-32.0) L 05/26/20 06:30 MCHC 29.7 g/dL (32-36) L 05/26/20 06:30 RDW Std Deviation 63.2 fl (35.1-43.9) H 05/26/20 06:30 RDW Coeff of Chetna 21.1 % (11.6-14.6) H 05/26/20 06:30 Neut % (Auto) 75.2 % (47-70) H 05/26/20 06:30 Lymph % (Auto) 15.3 % (19-41) L 05/26/20 06:30 [place] % (Auto) 11.0 % (0-10) H 05/25/20 18:40 Absolute Lymphs (auto) 0.77 X10^3/uL (0.83-4.51) L 05/26/20 06:30 Chloride 112 mmol/L (98-107) H 05/26/20 06:30 BUN 21 mg/dL (7-18) H 05/25/20 18:40 Creatinine 0.54 mg/dL (0.55-1.02) L 05/26/20 06:30 BUN/Creatinine Ratio 33.6 RATIO (10-20) H 05/26/20 06:30 Glucose 73 mg/dL (74-106) L 05/26/20 06:30 Calcium 7.8 mg/dL (8.5-10.1) L 05/26/20 06:30 Troponin I 20.600 ng/mL (<0.045) H* 05/26/20 00:56 - Assessment Food / Nutrition-Related History:: Pt reports terrible appetite/intake x 4 months. States consuming 1 meal per day of PB sandwhich. Consumes 1 bottle Ensure per day. Reports Food sounds good but when I go to eat I just can't get myself to. 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 Notes weakness & dizziness w/ inability to stand at stove to prepare meals. States wt 5 months ago at MD visit ~112 lbs- CBW 99.3#, no recent wt hx per EMR. Wt loss 12.7#/11% x 5 months (severe). +NFPE: severe temporal scooping/depression, severe orbital bone depression/hollow look, severe clavicle bone protrusion, severe dorsal hand interosseous muscle depression. - Nutrition Diagnosis Problem / Etiology / Signs & Symptoms (PES):: Severe malnutrition in the context of chronic illness/injury RT related to inadequate oral intake and increased energy needs related to COPD AEB consuming <50% energy intake compared to estimated energy needs >/= 1 month, severe muscle/fat wasting, severe wt loss 11% x 5 months per pt report, and BMI 16. Evidence of Malnutrition Exists:: Yes Severe PCM:: Chronic Illness - Nutrition Intervention Nutrition Prescription:: Calories: [id number]; Protein: 45-55g - Food / Nutrient Delivery Interventions Summary of nutrition intervention:: Pt would benefit from referral for Meals On Wheels or alternative meals delivery service as pt reports difficulty preparing own meals RT weakness. Nutrition support ordered as / adjusted to:: Will provide Regular diet for increased menu options RT pt w/ poor intake. Will provide CIB w/ b-fast, Ensure Enlive 120 ml w/ L&D. Nutrition education provided?: Yes - See dietitian assessment for education information provided. - MNT Monitoring Further MNT monitoring and evaluation required?: Yes MNT Follow-up in:: 3-5 days
--- NOTE | 2020-05-26 17:07 | PCS.PANDOC ---
PANDEMIC DOCUMENTATION INITIATED: Date: 05/25/2020 Time: 2104
[2020-05-26] MEDS: Nortriptyline 25 MG Capsule 100 MG PO (20:20)
[2020-05-26] MEDS: Atorvastatin Calcium 40 MG Tablet PO (20:20)
[2020-05-26] MEDS: 0.9% Normal Saline 1,000 ML 75 ML IV (20:23)
[2020-05-27] VITALS (7 sets, daily range): BP systolic 112–118; BP diastolic 57–66; PULSE 64–87; RESP 16; TEMP 36.6–36.7; O2SAT 85–94
--- NOTE | 2020-05-27 07:40 | PN.CARD_ITS ---
Subjectve: Patient seen and evaluated. Objective: Vital Signs Temp Pulse Resp BP Pulse Ox 98.1 F 81 16 112/58 L 93 05/27/20 06:00 05/27/20 06:00 05/27/20 06:00 05/27/20 06:00 05/27/20 06:00 Oxygen Flow Rate (L/min) 2 Oxygen Delivery Method Room Air Weight: 99 lb 4.986 oz Body Mass Index (BMI) 16.0 Intake and Output for Last 24 Hours 05/25/20 05/26/20 05/27/20 23:59 23:59 23:59 Intake Total 1000 / 1000 2715.0 / 2715.0 792.5 / 792.5 Balance 1000 / 1000 2715.0 / 2715.0 792.5 / 792.5 General: Awake, Alert, Oriented x 3 HEENT: PERRL, EOMI, Sclera Non Icteric Neck: Supple, Good ROM, No Lymph Node Enlargement Lungs: Clear to auscultation Cardiovascular: Regular Rhythm, Normal S1, Normal S2, No Murmurs, No Rubs, No Gallops Vascular: No Carotid Bruits, Normal Femoral Pulses, Normal Radial Pulses, Normal Dorsalis Pedal Pulse, Normal Posterior Tibial Pulses Abdomen: Bowel Sounds Present, Soft, Non Tender, No HSM, No Organomegaly Extremities: No Cyanosis, No Clubbing, No edema Neurological: No Focal Motor or Sensory Deficit Rhythm: EKG: ECHO: Stress Test: Cardiac Cath: PCI: CT Surgery: Holter monitor: EPS: PPM: CXR: Chest CT Scan: Medical Necessity - Tobacco Use Smoking Status: Current every day smoker Tobacco Use: Cigarettes Assessment/Plan 1. Non-ST elevation myocardial infarction * Patient presents with vague symptoms and is noted to have a non-ST elevation myocardial infarction. * Recommendation at this time would be to proceed with a cardiac catheterization. The risk benefits and alternatives have been explained to her she understands and agrees to proceed. Depending on the findings further recommendations will be made. * We recommend continuing aspirin * High intensity statin * Low-dose beta-dilma * * Addendum:: Cardiac catheterization today demonstrated the following: Normal left main coronary artery. Left anterior descending artery with moderate 50% proximal stenosis and left to right collaterals. Left circumflex artery with mild diffuse disease and left to right collaterals. Nondominant right coronary artery totally occluded in the midsegment. Left ventricular systolic dysfunction estimated EF 40% with an akinetic basal and mid inferior zone. Based on the above angiographic findings the patient will be treated with aggressive medical therapy. * * Patient appears to be stable this morning and can likely be discharged for outpatient follow-up. * Thank you for allowing me to participate in the care of your patient. Please don't hesitate to call if any issues arise.
--- NOTE | 2020-05-27 07:44 | CPS ---
pt increased to 2 lpm. saturation 94% on 2 lpm
--- NOTE | 2020-05-27 08:20 | DCINST_ITS ---
- Discharge Diagnoses Current Active Problems: Current Active and Chronic Problems (Last Updated 05/26/20 @ 16:11 by Radha Ball) NSTEMI (non-ST elevated myocardial infarction) (Acute 05/25/20) Chronic hypoxemic respiratory failure (Chronic) Nicotine dependence, cigarettes, uncomplicated (Chronic) Depression (Chronic) Anxiety (Chronic) You will use the following diet at home:: Cardiac Your food should be the consistency of: Regular Allergies/Adverse Reactions: Allergies levofloxacin [From Levaquin] Allergy (Verified 05/25/20 18:32) severe ankle pain Medications to take at Discharge Clonazepam [Klonopin] 0.5 mg PO BID 04/20/17 Aspirin [Aspirin, Baby] 81 mg PO DAILY@0800 05/02/18 Folic Acid 2 mg PO DAILY 05/02/18 Methotrexate Sodium [Methotrexate] 10 mg PO QWEEK 05/02/18 Nortriptyline HCl 100 mg PO QHS 05/02/18 Acetaminophen [Tylenol Tablet] 650 mg PO Q6H PRN PRN tab 05/04/18 Albuterol Sulfate [Ventolin Hfa] 2 puff INHALATION 4X/DAY 05/25/20 Leflunomide 20 mg PO 05/25/20 Meloxicam 15 mg DAILY 05/25/20 Prednisone 20 mg DAILY 05/25/20 Atorvastatin Calcium [Lipitor] 40 mg PO QHS #90 tab 05/27/20 Metoprolol Tartrate [Lopressor (beta dilma)] 25 mg PO BID #180 tab 05/27/20 The following prescriptions were given: Atorvastatin Calcium [Lipitor] 40 mg PO QHS #90 tab Transmission Status: Received by [id number] Metoprolol Tartrate [Lopressor (beta dilma)] 25 mg PO BID #180 tab Transmission Status: Received by [facility] Primary Care Physician: Antelmo Logan MD [Primary Care Provider] - Please follow up with your Primary Care Physician in: in 1-2 weeks Test Results: Test results from this visit will be discussed in further detail at your follow- up appointment, if applicable. Please Follow Up With: Presley Evans MD When: 2-4 weeks Proposed Discharge Date: 05/27/20
--- NOTE | 2020-05-27 08:21 | PCM.DC.SUM ---
Discharge Date and Diagnosis - Problem List Patient Problems: Active and Suspected Problems (Last Updated 05/26/20 @ 16:11 by Radha Ball) NSTEMI (non-ST elevated myocardial infarction) (Acute 05/25/20) Date of Admission: 05/25/20 Date of Discharge: 05/27/20 - Primary Discharge Diagnosis Acute Problems: Active Problems (Last Updated 05/26/20 @ 16:11 by Radha Ball) NSTEMI (non-ST elevated myocardial infarction) (Acute 05/25/20) - Secondary Discharge Diagnosis Chronic Problems: Chronic Problems (Last Updated 05/26/20 @ 16:11 by Radha Ball) Ischemic cardiomyopathy (Chronic) Atherosclerotic heart disease of [place] coronary artery without angina pectoris (Chronic) Chronic hypoxemic respiratory failure (Chronic) Nicotine dependence, cigarettes, in remission (Chronic) Nicotine dependence, cigarettes, uncomplicated (Chronic) Urinary tract infection with pyuria (Chronic) Arthritis (Chronic) Arthralgia of both knees (Chronic) Depression (Chronic) Hypoxia (Chronic) Edema (Chronic) Lumbar strain (Chronic) Blurred vision (Chronic) Anxiety (Chronic) COPD (chronic obstructive pulmonary disease) (Chronic) Tobacco use (Chronic) Anxiety and depression (Chronic) Hospital Course and Treatment Imaging Results: Clinical Impression(s) from Imaging Studies Chest X-Ray 05/25/20 18:50 IMPRESSION: Hyperexpanded lungs with chronic interstitial changes, no superimposed acute pulmonary process Electronically Signed: Gonzales Loomis MD at 19:15 EST , Service support , Cardiac catheterization report Normal left main coronary artery. Left anterior descending artery with moderate 50% proximal stenosis and left to right collaterals. Left circumflex artery with mild diffuse disease and left to right collaterals. Nondominant right coronary artery totally occluded in the midsegment. Left ventricular systolic dysfunction estimated EF 40% with an akinetic basal and mid inferior zone. 2D echo report Interpretation Summary Normal LV size. The estimated ejection fraction is 40 %. Moderate segmental systolic dysfunction (see wall motion). Mild (1+) eccentric mitral valve insufficiency. Pulmonary artery systolic pressure is 42 mmHg. Operations: None Summary of Care Provided: Patient is a 74-year-old lady who presented with chest discomfort and dizziness. Found to have markedly elevated troponin consistent with acute non-ST elevation CA admitted to monitored bed treatment initiated per protocol with consultation placed to cardiology 1. Acute non-ST segment elevation CA? patient admitted to a monitored bed treatment initiated per protocol with consultation placed to cardiology. Patient underwent left heart catheterization significant findings included mid RCA occlusion patient however was found to have collateral flow from left to right. Case was discussed with Dr. Bui with cardiology he recommended optimization of medical therapy 2. Anemia - Secondary to chronic disorder monitoring H&H and transfuse if patient becomes symptomatic or hemoglobin falls below 7 3. Depression with anxiety -Continue with home meds 4. Arthralgia ?Pain meds as needed 5. Tobacco dependence - Counseled on cessation, offered nicotine patch for tobacco cravings 6. Severe protein calorie malnutrition as evidenced by low BMI of 16, severe muscle and fat wasting and severe weight loss more than 11% over the past 15 months. Patient was seen in consultation by dietary recommendation is dietary supplementation Patient Problems: Active and Suspected Problems (Last Updated 05/26/20 @ 16:11 by Radha Ball) NSTEMI (non-ST elevated myocardial infarction) (Acute 05/25/20) Objective: GENERAL: cooperative HEENT: Atraumatic; EYES; Anicteric, Normal Conjunctiva NECK; supple, normal thyroid, RESPIRATORY: Diminished to auscultation CARDIOVASCULAR: Regular S1 S2, GI: soft, normoactive bowel sounds, : No Renal angle tenderness; EXTREMITIES: No edema, no clubbing, MUSCULOSKELETAL: no muscle waisting NEURO: Awake; no lateralizing signs. SKIN: No Rash PSYCH; Flat affect - Physical Exam Vitals/I&O's: Vital Signs Temp Pulse Resp BP Pulse Ox 98.1 F 64 16 112/58 L 85 05/27/20 06:00 05/27/20 07:47 05/27/20 06:00 05/27/20 06:00 05/27/20 07:44 Oxygen Flow Rate (L/min) 2 Oxygen Delivery Method Room Air Weight: 45.047 kg Body Mass Index (BMI) 16.0 Intake and Output for Last 24 Hours 05/25/20 05/26/20 05/27/20 23:59 23:59 23:59 Intake Total 1000 / 1000 2715.0 / 2715.0 792.5 / 792.5 Balance 1000 / 1000 2715.0 / 2715.0 792.5 / 792.5 Microbiology Past 72 Hours 05/25/20 18:55 Mucosa - Nose SARS-CoV-2 Antigen (Rapid) - Final Current Medications Acetaminophen (Acetaminophen 325 Mg Tablet) 650 mg PO Q6H PRN PRN PRN Reason: HEADACHE (1-10)/FEVER (T>100F) Last Admin: 05/26/20 11:26 Dose: 650 mg Documented by: Aspirin (Aspirin 81 Mg Tab.Chew) 81 mg PO DAILY@0800 [facility] Last Admin: 05/26/20 06:13 Dose: 81 mg Documented by: Atorvastatin Calcium (Atorvastatin Calcium 40 Mg Tablet) 40 mg PO QHS [facility] Last Admin: 05/26/20 20:20 Dose: 40 mg Documented by: Clonazepam (Clonazepam 0.5 Mg Tablet) 0.5 mg PO BID [facility] Last Admin: 05/26/20 20:20 Dose: 0.5 mg Documented by: Heparin Sodium (Beef Lung) (Heparin Lock 500 Unit/5 Ml In 10 Ml Syringe) 500 unit IV UD PRN PRN Reason: HEPARIN FLUSH Sodium Chloride () 1,000 mls @ 0 mls/hr IV .Q0M [facility] Sodium Chloride () 1,000 mls @ 75 mls/hr IV .[id number] [facility] Last Admin: 05/27/20 05:22 Dose: Not Given Documented by: Sodium Chloride () 250 mls @ 15 mls/hr IV .[id number] PRN PRN Reason: Saline Flush Sodium Chloride () 250 mls @ 15 mls/hr IV .[id number] PRN PRN Reason: Additional IVPB Infusion Sodium Chloride () 1,000 mls @ 0 mls/hr IV .Q0M [facility] Labetalol HCl (Labetalol (Prefilled) 20 Mg/4 Ml) 5 mg IV X1 PRN PRN Reason: SBP > 160 prior to sheath pull Stop: 05/28/20 09:32 Metoprolol Tartrate (Metoprolol Tartrate 25 Mg Tablet) 25 mg PO BID [facility] Last Admin: 05/26/20 22:07 Dose: 25 mg Documented by: Morphine Sulfate (Morphine 2 Mg/Ml Syringe) 2 mg IV Q3H PRN PRN PRN Reason: Pain Score 6-10 Nitroglycerin (Nitroglycerin (Inpatient Use) 0.4 Mg Tab.Subl) 0.4 mg SUBLINGUAL Q5M PRN PRN Reason: CARDIAC/CHEST PAIN Nortriptyline HCl (Nortriptyline 25 Mg Capsule) 100 mg PO QHS [facility] Last Admin: 05/26/20 20:20 Dose: 100 mg Documented by: Ondansetron HCl (Ondansetron 4 Mg/2 Ml Vial) 4 mg IV Q8H PRN PRN PRN Reason: NAUSEA/VOMITING Last Admin: 05/26/20 17:34 Dose: 4 mg Documented by: Sodium Chloride (0.9% Saline Lock 10 Ml Syringe) 10 - 40 ml IV UD PRN PRN Reason: SALINE FLUSH Last Admin: 05/26/20 17:34 Dose: 10 ml Documented by: Discharge Diet: Low fat/ Low Cholesterol Discharge Activity: Return to Normal Activity Home Medications: Medications to take at Discharge Clonazepam [Klonopin] 0.5 mg PO BID 04/20/17 Aspirin [Aspirin, Baby] 81 mg PO DAILY@0800 05/02/18 Folic Acid 2 mg PO DAILY 05/02/18 Methotrexate Sodium [Methotrexate] 10 mg PO QWEEK 05/02/18 Nortriptyline HCl 100 mg PO QHS 05/02/18 Acetaminophen [Tylenol Tablet] 650 mg PO Q6H PRN PRN tab 05/04/18 Albuterol Sulfate [Ventolin Hfa] 2 puff INHALATION 4X/DAY 05/25/20 Leflunomide 20 mg PO 05/25/20 Meloxicam 15 mg DAILY 05/25/20 Prednisone 20 mg DAILY 05/25/20 Atorvastatin Calcium [Lipitor] 40 mg PO QHS #90 tab 05/27/20 Lisinopril [Zestril] 2.5 mg PO DAILY #90 tab 05/27/20 Metoprolol Tartrate [Lopressor (beta mitzy)] 25 mg PO BID #180 tab 05/27/20 Following Prescriptions Were Given to Patient: Atorvastatin Calcium [Lipitor] 40 mg PO QHS #90 tab Transmission Status: Received by [facility] Metoprolol Tartrate [Lopressor (beta mitzy)] 25 mg PO BID #180 tab Transmission Status: Received by [facility] Lisinopril [Zestril] 2.5 mg PO DAILY #90 tab Transmission Status: Pending to [facility] Primary Care Physician: Antelmo Logan MD [Primary Care Provider] - Please follow up with your Primary Care Physician in: in 1-2 weeks Please Follow Up With: Presley Evans MD When: in 2-4 weeks Disposition: Home Minutes spent on discharge:: 45 Patient Condition:: Stable Medical Necessity - Tobacco Use Smoking Status: Current every day smoker Tobacco Use: Cigarettes Meaningful Use Info Meaningful Use Diagnoses (Choose all that apply): AMI - AMI/Post PCI/Angioplasty Aspirin given w/in 24hrs of arrival?: Yes ASA at discharge?: Yes Antiplatelet Therapy at Discharge:: Yes Statins at discharge?: Yes Matt/ARB at discharge?: Yes Beta Mitzy at discharge?: Yes Done w/ Acute CA measure.: Yes Documented LVEF (%): 40 Inpatient E&M: [id number] Disch Hosp
[2020-05-27] MEDS: Metoprolol Tartrate 25 MG Tablet PO (11:42)
[2020-05-27] MEDS: Aspirin 81 MG TAB.CHEW PO (11:43)
[2020-05-27] MEDS: clonazePAM 0.5 MG Tablet PO (11:46)
--- NOTE | 2020-05-27 12:28 | PHA.DC.MC ---
Pharmacy Service has performed discharge medication reconciliation and counseling for this patient. 1. ATORVASTATIN 40MG PO QHS 2. LISINOPRIL 2.5MG PO DAILY 3. METOPROLOL TARTRATE 25MG PO BID The patient's discharge medication list was reviewed for discrepancies and discrepancies were resolved. Home Medications Clonazepam [Klonopin] 0.5 mg PO BID 04/20/17 Aspirin [Aspirin, Baby] 81 mg PO DAILY@0800 05/02/18 Folic Acid 2 mg PO DAILY 05/02/18 Methotrexate Sodium [Methotrexate] 10 mg PO QWEEK 05/02/18 Nortriptyline HCl 100 mg PO QHS 05/02/18 Acetaminophen [Tylenol Tablet] 650 mg PO Q6H PRN PRN tab 05/04/18 Albuterol Sulfate [Ventolin Hfa] 2 puff INHALATION 4X/DAY 05/25/20 Leflunomide 20 mg PO 05/25/20 Meloxicam 15 mg DAILY 05/25/20 Prednisone 20 mg DAILY 05/25/20 Atorvastatin Calcium [Lipitor] 40 mg PO QHS #90 tab 05/27/20 Lisinopril [Zestril] 2.5 mg PO DAILY #90 tab 05/27/20 Metoprolol Tartrate [Lopressor (beta dilma)] 25 mg PO BID #180 tab 05/27/20 The patient was counseled on the following discharge medications and changes in medications for homegoing were reviewed. The Reason for Use, instructions for use, and potential side effects were reviewed for all new medications. The patient's questions regarding all of their medications were answered. The patient was able to verbally demonstrate an understanding of their discharge medications. Patient was counseled by hospital pharmacy technicianBen.
--- NOTE | 2020-05-28 15:32 | CASEMGMT ---
AMA ORTIZ Discharge Follow-Up Phone Call. Hermila: Elina Strata: 3 Discharge Date: 05/27/20 Adm Dx: NSTEMI Call to pt to inquire about how she has been doing since being discharged from the hospital. Pt states she is not feeling well today. She states she is still having pain in her chest and has been spitting up a lot of clear phlegm and my head hurts. Pt describes the chest pain as the same pain she has been having for the past month or so and states it is not worsened from what it has been, but it's mostly the phlegm that is new. She states she does not think she has a fever, but will check it after getting off of the phone. She states her daughter has been with her all day today but that she just left for awhile to go to the store, but she should be returning soon and she thinks she will be spending the night with her again tonight. She states My daughter thinks I should go back to the hospital, but I don't want to. I don't like going to the hospital. AMA ORTIZ advised pt to contact her PCP and to discuss her concerns with her PCP and also advised her to return to ER if CP worsens or she becomes SOB. She states she wants to take her medication this evening and wait to see how I feel. Pt states they did get the 2 new prescriptions that were ordered, but states, I don't know what they are for. AMA ORTIZ reviewed/explained medications with pt. She voices appreciation. Pt also stated she did not know Dr Logan's phone number. AMA ORTIZ provided this information to pt at this time. Pt is aware of the appt scheduled w/Dr Logan for 06/04 and upcoming appt w/Dr Evans. She denies having other questions/concerns and voices appreciation for the f/u call. AMA ORTIZ thanked pt for choosing [facility]. Le ORANTES RN, CM
== END 2020-05-27 13:00 | disposition home or self-care (01) | DRG 280 ==
LOC: ED 20:23 → PCU 20:42
PROVIDERS: Admitting Provider Family Medicine; Emergency Provider Emergency Medicine; PCP Family Medicine; Visit Provider Internal Medicine
DX: I21.4 Non-ST elevation (NSTEMI) myocardial infarction (principal); E43 Unspecified severe protein-calorie malnutrition; J96.11 Chronic respiratory failure with hypoxia; Z68.1 Body mass index [BMI] 19.9 or less, adult; D63.8 Anemia in other chronic diseases classified elsewhere; F41.8 Other specified anxiety disorders; Z87.440 Personal history of urinary (tract) infections; I25.10 Atherosclerotic heart disease of native coronary artery without angina pectoris; I25.5 Ischemic cardiomyopathy; I25.2 Old myocardial infarction; J44.9 Chronic obstructive pulmonary disease, unspecified; M19.90 Unspecified osteoarthritis, unspecified site; F17.211 Nicotine dependence, cigarettes, in remission; Z79.82 Long term (current) use of aspirin; Z79.899 Other long term (current) drug therapy
CPT/HCPCS: 36415; 71045; 80048; 83735; 84100; 84443; 84484; 85025; 85610; 87426; 93005; 93306; 93458; 97802; 99152; 99153; 99285; 99406; J7030; Q9957; Q9967; A4216; C1769; C1894; J2405

== ENCOUNTER 2020-06-18 12:43 | Observation (INO) | payer MEDICARE, MEDICAID, SELFPAY ==
[2020-05-26 17:06] VITALS: BMI 16.0
[2020-06-18] VITALS (9 sets, daily range): BP systolic 102–130; BP diastolic 53–79; PULSE 93–107; RESP 16–24; TEMP 36.3–36.8; O2SAT 94–97; BMI 16.0
--- NOTE | 2020-06-18 13:11 | EKG12_ITS ---
Test Reason : Blood Pressure : / mmHG Vent. Rate : 093 BPM Atrial Rate : 093 BPM P-R Int : 134 ms QRS Dur : 086 ms QT Int : 386 ms P-R-T Axes : -04 095 065 degrees QTc Int : 479 ms Normal sinus rhythm Rightward axis Nonspecific T wave abnormality Confirmed by WILVER ALVES, VERNELL ([id number]), editor book BRITTNEY AVILA ([id number]) on 06/22/2020 10:52:30 AM Referred By: ALEJANDRO/DIAZ Confirmed By:VERNELL PETTIT MD
--- NOTE | 2020-06-18 13:12 | ED.DCSUM_ITS ---
History of Present Illness Chief Complaint: Nausea/Vomiting Informant: Patient Context: Gradual Onset Narrative: Patient is a 74-year-old female presenting with worsening dyspnea on exertion as well as diarrhea and generalized weakness. Patient was hospitalized from 05/25- 05/27 with an NSTEMI. At that time she had a cardiac catheterization that showed complete occlusion of the middle segment of the RCA as well as a 50% LAD and an ejection fraction of 40%. No stents were placed and patient was treated medically. She notes that she has been home she is continued have significant dyspnea on exertion. She states she can even walk 10 feet without getting lightheaded, feel like she is going to pass out and feeling short of breath. In addition she is having decreased appetite and states she cannot drink anything. She is had a lot of weight loss and is having diarrhea. She states today her stool was clear which is new for her. She denies any associated abdominal pain. She has a chronic cough that is nonproductive and unchanged. She denies any shortness of breath at rest. She denies any swelling of her legs. She continues to smoke cigarettes but has gone from 2 packs a day to less than 1 pack/day. She notes she does have a lot of associated anxiety about her health. She lives with her daughter is not sure if she is strong enough to continue to stay at home. No other complaints at this time. Past Medical History - Allergies and Home Meds Allergies/Adverse Reactions: Allergies aspirin Allergy (Verified 06/18/20 12:44) Nausea levofloxacin [From Levaquin] Allergy (Verified 05/25/20 18:32) severe ankle pain Past Medical History: - - COPD, CAD, HTN, ANxiety Surgical History: no surgical history Lives: With Family Smoking Status: Current every day smoker - Family History Paternal Family History: Reports: Unknown - She reported that she does not know her paternal family history. Maternal Family History: Reports: Cancer - Breast CA., Heart Disease, - Review of Systems General: Reports: Malaise, Weight loss. Denies: Chills, Fever, Sweats Eyes: Denies: Visual changes - bilaterally, Diplopia ENT: Denies: Rhinorrhea, Sore throat Cardiovascular: Denies: Chest pain, Palpitations Respiratory: Reports: Dyspnea, Cough, Dyspnea on exertion Gastrointestinal: Reports: Diarrhea. Denies: Abdominal pain, Nausea, Vomiting, Melena, Hematochezia Genitourinary: Denies: Dysuria, Hematuria, Frequency Musculoskeletal: Denies: Back pain, Extremity Pain Skin: Denies: Rash, Wounds Neurological: Denies: Headache, Weakness, Numbness Physical Exam Vital Signs/Narrative: Vital Signs Temp Pulse Resp BP Pulse Ox 06/18/20 12:44 98.2 F 107 H 24 H 107/53 L 97 Inital Vital Signs reviewed: Yes General: Well nourished, Well developed, Cachectic, No Acute Distress Head: Normocephalic, Atraumatic Eyes: Perrl, EOMI ENT: Moist mucous membranes, No rhinorrhea Neck: Supple, Nontender, No JVD Cardiovascular: Regular rate, Regular rhythm, No murmurs Respiratory: No distress, Chest nontender, Diminished - bases Abdomen: Soft, Nontender, Nondistended, Normal bowel sounds Back: Nontender, Normal Inspection. Negative for: CVA tenderness Extremities: Nontender, No edema Skin: Normal color, No rash Neurological: Alert, Oriented x3, Cranial nerves II-XII grossly intact, Normal Strength, Normal Sensation Psychological: Normal affect, Normal Mood Diagnostic/Tx/Re-eval Chest X-Ray - ED: 1 View, Read by ED Physician, Read by Radiologist, Right Effusion, - - hyperinflated Clinical Impression(s) from Imaging Studies Abdomen/Pelvis CT 06/18/20 13:14 IMPRESSION: Sigmoid diverticulosis. Bilateral pleural effusions with bibasilar atelectasis right greater than left. Right renal cyst and focal cortical scar in the right kidney. Electronically Signed: Emerson Corona MD at 14:53 EST , Service support , Chest X-Ray 06/18/20 13:40 IMPRESSION: Blunting of the right cardiac phrenic angle with increased markings at the right lung base suggesting right basilar atelectasis and/or early infiltrate superimposed on chronic changes. Hyperinflation. Electronically Signed: Emerson Corona MD at 14:20 EST , Service support , Chest CTA 06/18/20 14:14 IMPRESSION: Bilateral pleural effusions with bibasilar atelectasis right greater than left superimposed on emphysematous changes. No evidence of pulmonary embolism. Electronically Signed: Emerson Corona MD at 14:55 EST , Service support , Laboratory Data 06/18/20 06/18/20 06/18/20 13:37 13:37 13:37 WBC 4.2 L RBC 4.48 Hgb 11.2 L Hct 36.1 L MCV 80.6 L MCH 25.0 L MCHC 31.0 L RDW Std Deviation 57.9 H RDW Coeff of [place] 19.8 H Plt Count 293 MPV 10.2 Immature Gran % (Auto) 0.200 Neut % (Auto) 75.0 H Lymph % (Auto) 12.9 L Tompkins % (Auto) 9.8 Eos % (Auto) 1.4 Baso % (Auto) 0.7 Absolute Neuts (auto) 3.1 Absolute Lymphs (auto) 0.54 L Nucleated RBC % 0 Differential Comment SCANNED Diff Path Review May foll Sodium 141 Potassium 4.0 Chloride 108 H Carbon Dioxide 27.0 Anion Gap 6 BUN 16 Creatinine 0.54 L Estim Creat Clear Calc 34.45 Est GFR (MDRD) Af Amer 141 Est GFR (MDRD) Non-Af 116 BUN/Creatinine Ratio 29.5 H Glucose 88 Calcium 8.7 Total Bilirubin 0.50 Direct Bilirubin 0.19 AST 16 ALT 17 Alkaline Phosphatase 141 H Troponin I 0.046 H B-Natriuretic Peptide 1102.4 H Total Protein 6.9 Albumin 2.8 L Globulin 4.1 Lipase 50 L - Rhythm Strip Rhythm Strip: Sinus Rhythm Rate: 93 Ectopy: None - EKG Initial EKG Interpretation: Sinus Rhythm, - - Normal sinus rhythm at a rate of 93 Rightward axis Normal intervals T wave inversion in lead III and aVF No change prior to prior EKG on 05/26/2020 - Medical Decision Making Patient is evaluated for worsening dyspnea on exertion as well as generalized weakness. Addition she has been having diarrhea but states her stool has been clear. Patient is quite thin and states has been losing weight. She has not required tolerate oxygen at this time. Given her recent hospitalization, shortness of breath and EKG I did obtain CTA for concern of PE. Patient has ple ural effusions but does not have a PE. In addition I obtained a CT of the abdomen for concern of a possible obstructive process given her clear diarrhea/mucus. No acute process is seen. Patient does have a significantly elevated proBNP. Her troponin is mildly elevated but is actually significantly down compared to her her last hospitalization where maxed out at 25.Patient has a mild leukopenia but no obvious source of infection. She does not have any other significant laboratory abnormalities. Patient be admitted for further evaluation of likely decompensated heart failure. Patient is agreeable to splenic care. She stable for PCU at time of disposition. ED Disposition - Plan for ED Patient: Disposition: [facility] Diagnosis: Pleural effusion, Acute exacerbation of CHF (congestive heart failure)
--- NOTE | 2020-06-18 13:14 | CT_ITS ---
STUDY: CT ABDOMEN AND PELVIS WITH CONTRAST REASON FOR EXAM: Female, 74 years old. Nausea, diarrhea, SOB, smoker, recent ID. Hx COPD. RADIATION DOSAGE (If Supplied By Facility): CTDIvol = ( 8.03 ) mGy, DLP = ( 623.12 ) mGycm TECHNIQUE: Transaxial images were obtained from the dome of the diaphragm to the symphysis pubis without oral contrast. IV 100mL Isovue-370 was administered. Sagittal and coronal images were reconstructed. Individualized dose optimization techniques were used for this CT. COMPARISON: None. FINDINGS: Small bilateral pleural effusions right greater than left with underlying atelectasis right greater than left superimposed on emphysematous changes and scarring. The visualized portions of the heart are within normal limits. Normal liver. Normal gallbladder and extrahepatic biliary system. Normal spleen. Normal pancreas. Normal bilateral adrenal glands. Focal cortical scar in the posterior medial aspect of the upper pole of the right kidney. There is a 1.9 cm cyst in the lateral inferior pole of the right kidney. Normal left kidney. Normal visualized stomach. Normal small intestine. There are multiple colonic diverticula consistent with diverticulosis. The appendix is visualized and appears normal. There is diffuse atherosclerotic calcification of the abdominal aorta. Mural thrombus is seen in the distal abdominal aorta with a transverse dimension of 1.9 cm. Normal inferior vena cava. Normal retroperitoneum. Normal urinary bladder. Normal abdominal wall. Normal osseous structures. CT/Abdomen/Pelvis W IV Cont ONLY IMPRESSION: Sigmoid diverticulosis. Bilateral pleural effusions with bibasilar atelectasis right greater than left. Right renal cyst and focal cortical scar in the right kidney. Electronically Signed: Emerson Corona MD at 14:53 EST , Service support ,
[2020-06-18] MEDS: 0.9% Normal Saline 1,000 ML 150 ML IV (13:34)
--- NOTE | 2020-06-18 13:40 | RAD_ITS ---
STUDY: X-RAY CHEST REASON FOR EXAM: Female, 74 years old. VT x2 weeks ago at [facility]. is having diarrrhea/nausea/SOB. concerns for dehydration TECHNIQUE: Single AP portable view of the chest. COMPARISON: Comparison is made with prior examination dated 11/22/2020. FINDINGS: EKG electrodes are seen. Hyperinflation. Blunting of the right concerning angle with right basilar atelectasis. Stable increased markings at the lung apices suggestive of scarring. Normal size heart. Normal mediastinum and julio. There is prominence of the pulmonary hilar arteries without peripheral pulmonary vascular congestion, suggesting pulmonary hypertension. There is atherosclerotic calcification of the aortic arch with tortuosity. Normal visualized thoracic spine. Normal visualized ribs, clavicles, and shoulders. There is no demonstrated abnormality of the visualized soft tissue structures of the upper abdomen. RAD/Chest 1 View (Portable) IMPRESSION: Blunting of the right cardiac phrenic angle with increased markings at the right lung base suggesting right basilar atelectasis and/or early infiltrate superimposed on chronic changes. Hyperinflation. Electronically Signed: Emerson Corona MD at 14:20 EST , Service support ,
[2020-06-18 13:51] LABS: Absolute Lymphocyte Count 0.54 X10^3/uL (0.83-4.51); Absolute Neutrophil Count 3.1 X10^3/uL (2.0-7.7); Basophil# 0.03 X10^3/uL; Basophil% 0.7 % (0-1); Eosinophil# 0.06 X10^3/uL; Eosinophils% 1.4 % (0-5); Hematocrit 36.1 % (37-47); Hemoglobin 11.2 g/dL (12.0-15.0); Lymphocyte # 0.54 X10^3/ul (4.0); Lymphocyte % 12.9 % (19-41); Mean Corpuscular Volume 80.6 fL (81-99); Mean Platelet Vol. 10.2 fl (6.2-12.0); Monocyte# 0.41 X10^3/uL; Monocyte% 9.8 % (0-10); NRBC Flagged by Analyzer 0 % (0-5); Neutrophil # 3.14 X10^3/uL (2.7-7.7); POSITIVE DIFFERENTIAL YES; Platelet Count 293 K/mm3 (150-450); RBC Distribution Width CV 19.8 % (11.6-14.6); RBC Distribution Width SD 57.9 fl (35.1-43.9); Red Blood Count 4.48 M/mm3 (4.2-5.4); White Blood Count 4.2 K/mm3 (4.4-11.0)
[2020-06-18 13:54] LABS: Differential Indicated SCAN CRITERIA MET
[2020-06-18 14:06] LABS: AST(SGOT) 16 U/L (15-37); Alanine Aminotransfer ALT/SGPT 17 U/L (13-56); Albumin, Serum 2.8 g/dL (3.2-5.0); Alkaline Phosphatase 141 U/L (45-117); Anion Gap 6 (5-15); BUN 16 mg/dL (7-18); BUN/Creat Ratio 29.5 RATIO (10-20); Bilirubin, Direct 0.19 mg/dL (0.00-0.30); Calcium,Total 8.7 mg/dL (8.5-10.1); Chloride 108 mmol/L (98-107); Creatinine, Serum 0.54 mg/dL (0.55-1.02); EST Glomerular Filtration Rate 116 mL/min (>60); Est Glom Filt Rate - Afr Amer 141 mL/min (>60); Estimated Creatinine Clearance 34.45 ml/min; Globulin 4.1 g/dL (2.2-4.2); Glucose 88 mg/dL (74-106); Lipase 50 U/L (73-393); Protein, Total 6.9 g/dL (6.4-8.2); Sodium Level 141 mmol/L (136-145)
[2020-06-18 14:11] LABS: BNP,B-Type NATRIURETIC PEPTIDE 1102.4 pg/mL (0-100)
--- NOTE | 2020-06-18 14:14 | CT_ITS ---
STUDY: CTA CHEST REASON FOR EXAM: Female, 74 years old. Nausea, diarrhea, SOB, smoker, recent AK. Hx COPD. RADIATION DOSAGE (If Supplied By Facility): CTDIvol = ( 8.03 ) mGy, DLP = ( 623.12 ) mGycm TECHNIQUE: The examination was performed with the intravenous administration of IV 100mL Isovue-370. Post-processing of the angiographic images was performed, with multiplanar reformation and 3D reconstruction. Individualized dose optimization techniques were used for this CT. COMPARISON: Comparison is made with prior study dated 04/23/2017. FINDINGS: Normal enhancement of the main pulmonary artery and right and left pulmonary arteries. Normal enhancement of the bilateral peripheral pulmonary arteries. There is no demonstrated pulmonary embolism. Normal thoracic aorta and visualized great vessels. There is no demonstrated aortic dissection. There are calcifications of the coronary arteries. Normal mediastinum. Normal hilar regions. Normal visualized trachea and bronchi. The lungs are hyper expanded, with flattening of the hemidiaphragms. Emphysematous changes more prominent in the upper lobes with a centrilobular bullous formation. Mild scarring at the right lung apex. Bilateral pleural effusions right greater than left with bibasilar atelectasis. Normal chest wall structures. There are degenerative changes of thoracic spine. Increased kyphosis. Normal visualized upper abdomen. CT/CTA Chest W/WO Contrast IMPRESSION: Bilateral pleural effusions with bibasilar atelectasis right greater than left superimposed on emphysematous changes. No evidence of pulmonary embolism. Electronically Signed: Emerson Corona MD at 14:55 EST , Service support ,
[2020-06-18 14:24] LABS: Differential Comment SCANNED
--- NOTE | 2020-06-18 16:37 | ED.RN ---
PT TAKEN UPSTAIRS TO PCU BEFORE ER NURSE COULD FINISH ADMISSION VITALS AND LASIX. PCU NOTIFIED
--- NOTE | 2020-06-18 17:44 | PCM.HP.STD ---
History of Present Illness Date of Admission: 06/18/20 Chief Complaint: Shortness of breath The patient is a 74 year old F with a PMH as below who presents back to the hospital after her recent non-STEMI where she had a complete RCA occlusion as well as a 50% LAD occlusion. No stents were placed at that time she was placed on medical management. She also had an echo at that time which demonstrated an EF of 40% and a pulmonary artery systolic pressure of 42 mmHg. She says that since discharge she has been progressively short of breath and has difficulty taking a deep breath and has had worsening dyspnea on exertion. She denies any chest pain, or lightheadedness. Noticed any lower extremity swelling. She does continue to smoke cigarettes though she is trying to cut down. In the ER her troponin was 0.046, which is down from 25 that it was at the end of May therefore will not follow. Also her BNP was elevated to 1102.4, there is no prior to correlate however her renal function is normal therefore I do trust this value. Past Medical History Past Medical History (Chronic Problems): Chronic Problems (Last Updated 06/09/20 @ 21:54 by Radha Ball) Acute exacerbation of CHF (congestive heart failure) (Chronic) Atherosclerotic heart disease of [place] coronary artery without angina pectoris (Chronic) Ischemic cardiomyopathy (Chronic) Secondary pulmonary arterial hypertension (Chronic) COPD (chronic obstructive pulmonary disease) (Chronic) Nicotine dependence (Chronic) Anemia (Chronic) Medical History: Medical History (Last Updated 06/09/20 @ 21:54 by Radha Ball) Atherosclerotic heart disease of [place] coronary artery without angina pectoris (Chronic) I25.10 History of non-ST elevation myocardial infarction (NSTEMI) (Resolved) Onset Date: 05/25/20 I25.2 Ischemic cardiomyopathy (Chronic) I25.5 Secondary pulmonary arterial hypertension (Chronic) I27.21 COPD (chronic obstructive pulmonary disease) (Chronic) J44.9 Nicotine dependence (Chronic) F17.200 Anemia (Chronic) D64.9 Anxiety F41.9 Anxiety and depression F41.8 Arthralgia of both knees M25.561, M25.562 Arthritis M19.90 Blurred vision H53.8 Depression F32.9 Lumbar strain S39.012A Nicotine dependence, cigarettes, uncomplicated F17.210 Tobacco use Z72.0 Chronic hypoxemic respiratory failure J96.11 Community acquired pneumonia (Resolved) J18.9 Edema (Resolved) R60.9 Hypoxia (Resolved) R09.02 Urinary tract infection with pyuria (Resolved) N39.0 Allergies aspirin Allergy (Verified 06/18/20 12:44) Nausea levofloxacin [From Levaquin] Allergy (Verified 05/25/20 18:32) severe ankle pain Home Medications: Ambulatory Orders Medication Instructions Recorded Clonazepam [Klonopin] 0.5 mg PO BID PRN 04/20/17 Aspirin [Aspirin, Baby] 81 mg PO DAILY@0800 05/02/18 Nortriptyline HCl 100 mg PO QHS 05/02/18 Albuterol Sulfate [Ventolin Hfa] 2 puff INHALATION 4X/DAY 05/25/20 Leflunomide 20 mg PO DAILY 05/25/20 Atorvastatin Calcium [Lipitor] 40 mg PO QHS #90 tab 05/27/20 Lisinopril [Zestril] 2.5 mg PO DAILY #90 tab 05/27/20 Metoprolol Tartrate [Lopressor 25 mg PO BID #180 tab 05/27/20 (beta dilma)] Prednisone 5 - 20 mg PO DAILY PRN PRN 06/18/20 Surgical History: Surgical History (Last Updated 05/26/20 @ 16:12 by Radha Ball) History of left heart catheterization Onset Date: 05/26/20 Z98.890 Surgical History: no surgical history Psychiatric History: Anxiety, Depression [employer] History: No pertinent [employer] history Lives: With Family Smoking Status: Current every day smoker Tobacco Use: Cigarettes Alcohol: None Drugs: None - *Family History Paternal History Items: Unknown - She reported that she does not know her paternal family history. Maternal History Items: Cancer - Breast CA., Heart Disease, - Review of Systems Constitutional: Denies: Chills, Fever, Weight Change HEENT: Denies: Head Aches, Sinus Congestion, Sinus Drainage Cardiovascular: Denies: Chest Pain, Palpitations Respiratory: Reports: Shortness of Breath, Shortness of breath upon exertion. Denies: Cough, Shortness of breath at rest, Sputum production Gastrointestinal: Denies: Abdominal Pain, Nausea, Vomiting Genitourinary: Denies: Dysuria Musculoskeletal: Denies: Joint Pain, Joint Tenderness Skin: Denies: Rash, Wounds Neurological: Denies: Numbness, Tingling, Focal weakness Psychiatric: Denies: Anxiety, Depression Hematologic/ Lymphatic: Denies: Easy Bruising, Easy Bleeding VTE Information - Inpt Only VTE Present on Admission: No Patient Problems: Active and Suspected Problems (Last Updated 06/09/20 @ 21:54 by Radha Ball) Pleural effusion (Acute) - Physical Exam Vitals/I&O's: Vital Signs Temp Pulse Resp BP Pulse Ox 97.4 F L 102 H 19 H 130/79 H 97 06/18/20 16:20 06/18/20 16:42 06/18/20 16:20 06/18/20 16:20 06/18/20 16:20 Oxygen Delivery Method Room Air Weight: 99 lb Body Mass Index (BMI) 16.0 Intake and Output for Last 24 Hours 06/16/20 06/17/20 06/18/20 23:59 23:59 23:59 Intake Total 412.5 / 412.5 Balance 412.5 / 412.5 General: Alert, Oriented x3, Cooperative, No apparent distress, - HEENT: Atraumatic, PERRLA, EOMI, Normocephalic Oral: Moist Mucosa Neck: Supple, No JVD Lungs: Normal air movement, No rhonchi, No wheeze, No rales, Diminished Cardiovascular: Regular rate, Regular Rhythm, Normal S1, Normal S2, No murmurs Abdomen: Soft, Non Tender, Non-Distended, No Hepato-splenomegaly Extremities: No edema, Capillary Refill Less than 3 Seconds Skin: No rashes, No breakdown Neurological: Neuro grossly intact, Sensory exam intact to light touch and pain Psych/Mental Status: Normal Affect, Appropriate Microbiology Past 72 Hours 06/18/20 13:16 Mucosa - Nose SARS-CoV-2 Antigen (Rapid) - Final Laboratory Results 06/18/20 13:37: WBC 4.2 L, RBC 4.48, Hgb 11.2 L, Hct 36.1 L, MCV 80.6 L, MCH 25.0 L, MCHC 31.0 L, RDW Std Deviation 57.9 H, RDW Coeff of Chetna 19.8 H, Plt Count 293, MPV 10.2, Immature Gran % (Auto) 0.200, Neut % (Auto) 75.0 H, Lymph % (Auto) 12.9 L, Piatt % (Auto) 9.8, Eos % (Auto) 1.4, Baso % (Auto) 0.7, Absolute Neuts (auto) 3.1, Absolute Lymphs (auto) 0.54 L, Nucleated RBC % 0, Differential Comment SCANNED, Diff Path Review August foll 06/18/20 13:37: Sodium 141, Potassium 4.0, Chloride 108 H, Carbon Dioxide 27.0, Anion Gap 6, BUN 16, Creatinine 0.54 L, Estim Creat Clear Calc 34.45, Est GFR (MDRD) Af Amer 141, Est GFR (MDRD) Non-Af 116, BUN/Creatinine Ratio 29.5 H, Glucose 88, Calcium 8.7, Total Bilirubin 0.50, Direct Bilirubin 0.19, AST 16, ALT 17, Alkaline Phosphatase 141 H, Troponin I 0.046 H, Total Protein 6.9, Albumin 2.8 L, Globulin 4.1, Lipase 50 L 06/18/20 13:37: B-Natriuretic Peptide 1102.4 H Current Medications Nutritional Formula (Lactose Free) (Ensure Enlive 120 Ml Liquid) 120 ml PO 4X/DAY CAROLEE Sodium Chloride (0.9% Saline Lock 10 Ml Syringe) 10 - 40 ml IV UD PRN PRN Reason: SALINE FLUSH Assessment/Plan All Active Problems (Last Updated 06/09/20 @ 21:54 by Radha Ball) Pleural effusion (Acute) History of non-ST elevation myocardial infarction (NSTEMI) (Resolved 05/25/20) Community acquired pneumonia (Resolved) Edema (Resolved) Hypoxia (Resolved) NSTEMI (non-ST elevated myocardial infarction) (Resolved 05/25/20) Urinary tract infection with pyuria (Resolved) 1. CAD/acute on chronic systolic CHF/pulmonary hypertension/HTN/HLD/tobacco abuse -She recently had a heart cath which demonstrated complete blockage of her RCA. -No stents were placed at that time and elected to go for medical management -Given of the pleural effusions on her chest x-ray and her shortness of breath, will initiate Lasix treatment -We will consult cardiology -No need to repeat echo as she had an echo at the end of May -We will continue with all of her home medications including metoprolol and lisinopril. Her lisinopril is only 2.5 mg therefore this could be increased -Renan BMP in the morning 2. Anxiety/depression -Stable -Continue with nortriptyline and clonazepam 3. RA -Stable -Continue with her leflunomide DVT: Lovenox Inpatient E&M: 54500 Init Hosp L3
[2020-06-18] MEDS: Furosemide 40 MG/4 ML Vial IV (19:54)
[2020-06-18] MEDS: 0.9% Saline Lock 10 ML Syringe IV (19:54)
[2020-06-18] MEDS: Nortriptyline 25 MG Capsule 100 MG PO (22:00)
[2020-06-18] MEDS: Atorvastatin Calcium 40 MG Tablet PO (22:00)
[2020-06-18] MEDS: Metoprolol Tartrate 25 MG Tablet PO (22:00)
[2020-06-19] VITALS (17 sets, daily range): BP systolic 97–116; BP diastolic 58–66; PULSE 81–101; RESP 16–20; TEMP 36.5–37.4; O2SAT 90–99; BMI 15.5
[2020-06-19 06:44] LABS: Absolute Lymphocyte Count 0.87 X10^3/uL (0.83-4.51); Absolute Neutrophil Count 2.9 X10^3/uL (2.0-7.7); Basophil# 0.05 X10^3/uL; Basophil% 1.1 % (0-1); Eosinophil# 0.11 X10^3/uL; Eosinophils% 2.4 % (0-5); Hematocrit 35.3 % (37-47); Hemoglobin 10.7 g/dL (12.0-15.0); Lymphocyte # 0.87 X10^3/ul (4.0); Lymphocyte % 19.3 % (19-41); Mean Corp Hgb Conc 30.3 g/dL (32-36); Mean Corpuscular Hgb 24.6 pg (27.0-32.0); Mean Corpuscular Volume 81.1 fL (81-99); Mean Platelet Vol. 10.1 fl (6.2-12.0); Monocyte# 0.52 X10^3/uL; Monocyte% 11.6 % (0-10); NRBC Flagged by Analyzer 0 % (0-5); Neutrophil # 2.94 X10^3/uL (2.7-7.7); Neutrophil % 65.4 % (47-70); Platelet Count 298 K/mm3 (150-450); RBC Distribution Width CV 19.4 % (11.6-14.6); RBC Distribution Width SD 57.7 fl (35.1-43.9); Red Blood Count 4.35 M/mm3 (4.2-5.4); White Blood Count 4.5 K/mm3 (4.4-11.0)
[2020-06-19 07:05] LABS: Anion Gap 6 (5-15); BUN 20 mg/dL (7-18); Calcium,Total 8.6 mg/dL (8.5-10.1); Chloride 104 mmol/L (98-107); Creatinine, Serum 0.54 mg/dL (0.55-1.02); EST Glomerular Filtration Rate 117 mL/min (>60); Est Glom Filt Rate - Afr Amer 141 mL/min (>60); Estimated Creatinine Clearance 34.46 ml/min; Glucose 89 mg/dL (74-106); Potassium 3.4 mmol/L (3.5-5.1); Sodium Level 139 mmol/L (136-145)
[2020-06-19] MEDS: Albuterol 2.5 MG/3 ML VIAL.NEB. INHALATION ×4 (07:05→19:58)
[2020-06-19] MEDS: Aspirin 81 MG TAB.CHEW PO (08:09)
--- NOTE | 2020-06-19 08:46 | PN_ITS ---
Patient Problems: Active and Suspected Problems (Last Updated 06/09/20 @ 21:54 by Radha Ball) Pleural effusion (Acute) Subjective: Breathing better. Urinating frequently w furosemide. Complains of dry skin. Vitals/I&O's: Vital Signs Temp Pulse Resp BP Pulse Ox 36.6 C 88 20 H 104/66 95 06/19/20 02:18 06/19/20 07:05 06/19/20 07:05 06/19/20 02:18 06/19/20 03:30 Oxygen Delivery Method Room Air Weight: 43.545 kg Body Mass Index (BMI) 16.0 Intake and Output for Last 24 Hours 06/17/20 06/18/20 06/19/20 23:59 23:59 23:59 Intake Total 412.5 / 612.5 200 / 200 Output Total 1300 / 1300 Balance 412.5 / -487.5 -1100 / -1100 General: Alert, No apparent distress HEENT: Atraumatic, Normocephalic Oral: Moist Mucosa, No Gingival or Mucosal Lesions/ Ulcerations Neck: No Nodes, Thyroid Normal Size and Texture Lungs: Clear to auscultation, Diminished Cardiovascular: Regular rate, Regular Rhythm, Normal S1, Normal S2, No murmurs Abdomen: Bowel Sounds Present, Soft, Non Tender, Non-Distended, No Hepato- splenomegaly Extremities: No edema, No Calf Tenderness Skin: No rashes, No breakdown Musculoskeletal: Cachexia, Muscle Wasting Neurological: Muscle tone normal, Coordination normal Psych/Mental Status: Normal Affect, Appropriate Microbiology Past 72 Hours 06/18/20 13:16 Mucosa - Nose SARS-CoV-2 Antigen (Rapid) - Final Laboratory Results 06/18/20 13:37: WBC 4.2 L, RBC 4.48, Hgb 11.2 L, Hct 36.1 L, MCV 80.6 L, MCH 25.0 L, MCHC 31.0 L, RDW Std Deviation 57.9 H, RDW Coeff of Chetna 19.8 H, Plt Count 293, MPV 10.2, Immature Gran % (Auto) 0.200, Neut % (Auto) 75.0 H, Lymph % (Auto) 12.9 L, [place] % (Auto) 9.8, Eos % (Auto) 1.4, Baso % (Auto) 0.7, Absolute Neuts (auto) 3.1, Absolute Lymphs (auto) 0.54 L, Nucleated RBC % 0, Differential Comment SCANNED, Diff Path Review August06/18/20 13:37: Sodium 141, Potassium 4.0, Chloride 108 H, Carbon Dioxide 27.0, Anion Gap 6, BUN 16, Creatinine 0.54 L, Estim Creat Clear Calc 34.45, Est GFR (MDRD) Af Amer 141, Est GFR (MDRD) Non-Af 116, BUN/Creatinine Ratio 29.5 H, Glucose 88, Calcium 8.7, Total Bilirubin 0.50, Direct Bilirubin 0.19, AST 16, ALT 17, Alkaline Phosphatase 141 H, Troponin I 0.046 H, Total Protein 6.9, Albumin 2.8 L, Globulin 4.1, Lipase 50 L 06/18/20 13:37: B-Natriuretic Peptide 1102.4 H 06/19/20 06:10: WBC 4.5, RBC 4.35, Hgb 10.7 L, Hct 35.3 L, MCV 81.1, MCH 24.6 L, MCHC 30.3 L, RDW Std Deviation 57.7 H, RDW Coeff of Chetna 19.4 H, Plt Count 298, MPV 10.1, Immature Gran % (Auto) 0.200, Neut % (Auto) 65.4, Lymph % (Auto) 19.3, [place] % (Auto) 11.6 H, Eos % (Auto) 2.4, Baso % (Auto) 1.1 H, Absolute Neuts (auto) 2.9, Absolute Lymphs (auto) 0.87, Nucleated RBC % 0 06/19/20 06:10: Sodium 139, Potassium 3.4 L, Chloride 104, Carbon Dioxide 29.0, Anion Gap 6, BUN 20 H, Creatinine 0.54 L, Estim Creat Clear Calc 34.46, Est GFR (MDRD) Af Amer 141, Est GFR (MDRD) Non-Af 117, BUN/Creatinine Ratio 37.0 H, Glucose 89, Calcium 8.6 CT scan of chest I personally reviewed and showed small bilateral pleural effusions. Large airways with emphysematous changes. No infiltrate nor any pulmonary vascular congestion. Current Medications Acetaminophen (Acetaminophen 325 Mg Tablet) 650 mg PO Q6H PRN PRN PRN Reason: Pain Score 1-10/Temp > 100.7 F Albuterol Sulfate (Albuterol 2.5 Mg/3 Ml Vial.Neb.) 2.5 mg INHALATION 4X/DAY [facility] Last Admin: 06/19/20 07:05 Dose: 2.5 mg Documented by: Aspirin (Aspirin 81 Mg Tab.Chew) 81 mg PO DAILY@0800 [facility] Last Admin: 06/19/20 08:09 Dose: 81 mg Documented by: Atorvastatin Calcium (Atorvastatin Calcium 40 Mg Tablet) 40 mg PO QHS [facility] Last Admin: 06/18/20 22:00 Dose: 40 mg Documented by: Clonazepam (Clonazepam 0.5 Mg Tablet) 0.5 mg PO BID PRN PRN Reason: ANXIETY Enoxaparin Sodium (Enoxaparin 40 Mg/0.4 Ml Syringe) 40 mg SC DAILY [facility] Furosemide (Furosemide 40 Mg/4 Ml Vial) 40 mg IV BID@1000,1800 [facility] Last Admin: 06/18/20 19:54 Dose: 40 mg Documented by: Leflunomide (Leflunomide 10 Mg Tablet) 20 mg PO DAILY [facility] Lisinopril (Lisinopril 2.5 Mg Tablet) 2.5 mg PO DAILY [facility] Melatonin (Melatonin 3 Mg Tablet) 3 mg PO QHS PRN PRN PRN Reason: INSOMNIA Metoprolol Tartrate (Metoprolol Tartrate 25 Mg Tablet) 25 mg PO BID [facility] Last Admin: 06/18/20 22:00 Dose: 25 mg Documented by: Nortriptyline HCl (Nortriptyline 25 Mg Capsule) 100 mg PO QHS [facility] Last Admin: 06/18/20 22:00 Dose: 25 mg Documented by: Nutritional Formula (Lactose Free) (Ensure Enlive 120 Ml Liquid) 120 ml PO 4X/DAY [facility] Last Admin: 06/18/20 22:00 Dose: 120 ml Documented by: Ondansetron HCl (Ondansetron 4 Mg/2 Ml Vial) 4 mg IV Q8H PRN PRN PRN Reason: NAUSEA/VOMITING Sodium Chloride (0.9% Saline Lock 10 Ml Syringe) 10 - 40 ml IV UD PRN PRN Reason: SALINE FLUSH Last Admin: 06/18/20 19:54 Dose: 10 ml Documented by: STROKE Vital Signs/Narrative: Vital Signs Pulse Resp 06/19/20 07:05 88 20 H 06/19/20 07:00 84 Medical Necessity - Tobacco Use Smoking Status: Current every day smoker Tobacco Use: Cigarettes Assessment/Plan All Active Problems (Last Updated 06/09/20 @ 21:54 by Radha Ball) Pleural effusion (Acute) History of non-ST elevation myocardial infarction (NSTEMI) (Resolved 05/25/20) Community acquired pneumonia (Resolved) Edema (Resolved) Hypoxia (Resolved) NSTEMI (non-ST elevated myocardial infarction) (Resolved 05/25/20) Urinary tract infection with pyuria (Resolved) 1. Pleural effusions * concern for overdiuresis * change furosemide to PO 2. Acute HFrEF * EF 40% on echo from 05/26 * on low dose ACEi * change metoprolol tartrate to succinate 25, in hopes if BP stable can further optimize lisinopril 3. AECOPD * diminished air movement * doubt the pleural effusion are contributing much to her dyspnea * start prednisone 40 daily for 5 days and BDs * need follow up with pulmonary, PFTs, etc. 4. PAH group 3 * 2/2 COPD. compounding her dyspnea, HF, COPD * treat the underlying process(es) * may need PSG as outpt 5. CAD * trop slightly elevated, recheck * maybe demand 2/2 above * RCA occlusion with collaterals, no intervention needed * on ASA and HIS 6. Severe protein malnutrition * nutrition consult * supplements 7. VTE prophylaxis: LMWH 8. Disposition * optimize medications and observe overnight. If does well, anticipate DC 06/20 Inpatient E&M: 43851 Subs Hosp L3
--- NOTE | 2020-06-19 09:04 | CON.PCM_ITS ---
Reason for Consult Date of Consultation: 06/19/20 Reason for Consultation: Shortness of breath History of Present Illness: The patient is a 74 year old F with a past medical history significant for coronary artery disease. She was recently hospitalized with a non-ST elevation myocardial infarction with a total occlusion of the right coronary artery and a 50% LAD stenosis and mild circumflex artery stenosis. She also had left ventricular systolic dysfunction with an ejection fraction of 40% and an akinetic inferior wall. She has been progressively short of breath since discharge but denies any chest pain or lightheadedness. She has not noticed any lower extremity swelling. She unfortunately continues to use tobacco products. She presented to the emergency room and was noted to have an elevated natruretic peptide level. She was admitted for further evaluation and management she also was noted to have a mildly increased troponin. Her EKG did not demonstrate any acute or ongoing changes. She has denied any dizziness or diaphoresis no near syncope or syncope. [] Past Medical History Allergies/Adverse Reactions: Allergies aspirin Allergy (Verified 06/18/20 12:44) Nausea levofloxacin [From Levaquin] Allergy (Verified 05/25/20 18:32) severe ankle pain Home Medications: Ambulatory Orders Medication Instructions Recorded Clonazepam [Klonopin] 0.5 mg PO BID PRN 04/20/17 Aspirin [Aspirin, Baby] 81 mg PO DAILY@0800 05/02/18 Nortriptyline HCl 100 mg PO QHS 05/02/18 Albuterol Sulfate [Ventolin Hfa] 2 puff INHALATION 4X/DAY 05/25/20 Leflunomide 20 mg PO DAILY 05/25/20 Atorvastatin Calcium [Lipitor] 40 mg PO QHS #90 tab 05/27/20 Lisinopril [Zestril] 2.5 mg PO DAILY #90 tab 05/27/20 Metoprolol Tartrate [Lopressor 25 mg PO BID #180 tab 05/27/20 (beta dilma)] Prednisone 5 - 20 mg PO DAILY PRN PRN 06/18/20 Past Medical History (Chronic Problems): Chronic Problems (Last Updated 06/09/20 @ 21:54 by Radha Ball) Acute exacerbation of CHF (congestive heart failure) (Chronic) Atherosclerotic heart disease of [place] coronary artery without angina pectoris (Chronic) Ischemic cardiomyopathy (Chronic) Secondary pulmonary arterial hypertension (Chronic) COPD (chronic obstructive pulmonary disease) (Chronic) Nicotine dependence (Chronic) Anemia (Chronic) Surgical History: no surgical history Psychiatric History: Anxiety, Depression 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 Maternal History Items: Cancer - Breast CA., Heart Disease, - Lives: With Family Smoking Status: Current every day smoker Tobacco Use: Cigarettes Alcohol: None Drugs: None Review of Systems - Review of Systems General: Denies: Fever, Night Sweats, Fatigue HEENT: Denies: Vision Change Cardiovascular: Reports: Shortness of Breath, Shortness of Breath with Exertion. Denies: Chest Discomfort, Orthopnea, PND, Peripheral Edema, Palpitations, Lightheadedness, Dizziness, Near Syncope, Syncope Respiratory: Denies: Cough, Sputum Production, Hemoptysis Gastrointestinal: Denies: Hematemesis, Hematochezia, Melena Genitourinary: Denies: Dysuria, Hematuria Skin: Denies: Rash Neurological: Denies: Dizziness Psychiatric: Denies: Anxiety Endocrine: Denies: Unexplained Weight Loss Subjectve: Pleasant lady in no distress at this time Objective: Vital Signs Temp Pulse Resp BP Pulse Ox 99.4 F H 93 16 116/65 93 06/19/20 08:10 06/19/20 08:10 06/19/20 08:10 06/19/20 08:10 06/19/20 08:10 Oxygen Delivery Method Room Air Weight: 96 lb Body Mass Index (BMI) 16.0 Intake and Output for Last 24 Hours 06/17/20 06/18/20 06/19/20 23:59 23:59 23:59 Intake Total 412.5 / 612.5 200 / 200 Output Total 1300 / 1300 Balance 412.5 / -487.5 -1100 / -1100 General: Awake, Alert, Oriented x 3 HEENT: PERRL, EOMI, Sclera Non Icteric Neck: Supple, Good ROM, No Lymph Node Enlargement Lungs: Clear to auscultation Cardiovascular: Regular Rhythm, Normal S1, Normal S2, No Murmurs, No Rubs, No Gallops Vascular: No Carotid Bruits, Normal Femoral Pulses, Normal Radial Pulses, Normal Dorsalis Pedal Pulse, Normal Posterior Tibial Pulses Abdomen: Bowel Sounds Present, Soft, Non Tender, No HSM, No Organomegaly Extremities: No Cyanosis, No Clubbing, No edema Musculoskeletal: No Erythema Skin: No Rashes Lymphatic: No Lymph Node Enlargement Neurological: No Focal Motor or Sensory Deficit 06/18/20 13:37: WBC 4.2 L, RBC 4.48, Hgb 11.2 L, Hct 36.1 L, MCV 80.6 L, MCH 25.0 L, MCHC 31.0 L, Plt Count 293, MPV 10.2, Immature Gran % (Auto) 0.200, Neut % (Auto) 75.0 H, Lymph % (Auto) 12.9 L, [place] % (Auto) 9.8, Eos % (Auto) 1.4, Baso % (Auto) 0.7, Absolute Neuts (auto) 3.1, Nucleated RBC % 0 06/18/20 13:37: Sodium 141, Potassium 4.0, Chloride 108 H, Carbon Dioxide 27.0, Anion Gap 6, BUN 16, Creatinine 0.54 L, Est GFR (MDRD) Af Amer 141, Est GFR (MDRD) Non-Af 116, BUN/Creatinine Ratio 29.5 H, Glucose 88, Calcium 8.7, Total Bilirubin 0.50, Direct Bilirubin 0.19, Troponin I 0.046 H 06/18/20 13:37: B-Natriuretic Peptide 1102.4 H 06/19/20 06:10: WBC 4.5, RBC 4.35, Hgb 10.7 L, Hct 35.3 L, MCV 81.1, MCH 24.6 L, MCHC 30.3 L, Plt Count 298, MPV 10.1, Immature Gran % (Auto) 0.200, Neut % (Auto) 65.4, Lymph % (Auto) 19.3, [place] % (Auto) 11.6 H, Eos % (Auto) 2.4, Baso % (Auto) 1.1 H, Absolute Neuts (auto) 2.9, Nucleated RBC % 0 06/19/20 06:10: Sodium 139, Potassium 3.4 L, Chloride 104, Carbon Dioxide 29.0, Anion Gap 6, BUN 20 H, Creatinine 0.54 L, Est GFR (MDRD) Af Amer 141, Est GFR (MDRD) Non-Af 117, BUN/Creatinine Ratio 37.0 H, Glucose 89, Calcium 8.6 Rhythm: EKG: Normal sinus rhythm with no acute changes ECHO: Left ventricular systolic dysfunction with an estimated ejection fraction of 40% and an akinetic inferior wall. Stress Test: Cardiac Cath: PCI: CT Surgery: Holter monitor: EPS: PPM: CXR: Chest CT Scan: Assessment/Plan 1. Congestive heart failure with reduced ejection fraction * Patient has known coronary artery disease status post recent non-ST elevation myocardial infarction. She presents with progressive shortness of breath. I suspect the above is on the basis of her recent coronary artery disease. * I would recommend that we institute a diuretic therapy. * I do not think that she needs any reevaluation of her coronaries at this particular time. She also had a recent echocardiogram. * We will continue to optimize her medical therapy. * 2. Coronary artery disease * She does have known coronary artery disease with an occluded right coronary artery and left to right collaterals. I would not recommend that we make any other major changes. * We will continue with aggressive risk factor modification. * 3. Obstructive lung disease * Above will be treated as per primary physician. * * Thank you for allowing me to participate in the care of your patient. Please don't hesitate to call if any issues arise.
[2020-06-19] MEDS: Furosemide 40 MG/4 ML Vial IV ×2 (10:17→21:08)
[2020-06-19] MEDS: Potassium Chloride Oral Tablet 20 MEQ 40 MEQ PO (10:17)
[2020-06-19] MEDS: predniSONE 20 MG Tablet 40 MG PO (10:17)
[2020-06-19] MEDS: Enoxaparin 40 MG/0.4 ML Syringe SC (10:18)
[2020-06-19] MEDS: Metoprolol(XL)Succ 25 MG Tablet PO (10:20)
[2020-06-19] MEDS: Lisinopril 2.5 MG Tablet PO (10:21)
[2020-06-19] MEDS: 0.9% Saline Lock 10 ML Syringe IV ×4 (10:22→21:09)
--- NOTE | 2020-06-19 12:31 | NT.THERAPY_ITS ---
Nutrition Therapy Report - History Nutrition Services has been consulted to:: Manage nutrient details of diet order Current diet / nutrition support order:: cardiac, 1500mL fluid restriction, ensure enlive 120mL 4x/day - Anthropometric Measurements Height:: 5 ft 6 in Weight:: 43.545 kg Body Mass Index (BMI):: 15.5 - Relevant Labs Relevant Labs:: WBC 4.2 K/mm3 (4.4-11.0) L 06/18/20 13:37 Hgb 10.7 g/dL (12.0-15.0) L 06/19/20 06:10 Hct 35.3 % (37-47) L 06/19/20 06:10 MCV 80.6 fL (81-99) L 06/18/20 13:37 MCH 24.6 pg (27.0-32.0) L 06/19/20 06:10 MCHC 30.3 g/dL (32-36) L 06/19/20 06:10 RDW Std Deviation 57.7 fl (35.1-43.9) H 06/19/20 06:10 RDW Coeff of [place] 19.4 % (11.6-14.6) H 06/19/20 06:10 Neut % (Auto) 75.0 % (47-70) H 06/18/20 13:37 Lymph % (Auto) 12.9 % (19-41) L 06/18/20 13:37 [place] % (Auto) 11.6 % (0-10) H 06/19/20 06:10 Baso % (Auto) 1.1 % (0-1) H 06/19/20 06:10 Absolute Lymphs (auto) 0.54 X10^3/uL (0.83-4.51) L 06/18/20 13:37 Potassium 3.4 mmol/L (3.5-5.1) L 06/19/20 06:10 Chloride 108 mmol/L (98-107) H 06/18/20 13:37 BUN 20 mg/dL (7-18) H 06/19/20 06:10 Creatinine 0.54 mg/dL (0.55-1.02) L 06/19/20 06:10 BUN/Creatinine Ratio 37.0 RATIO (10-20) H 06/19/20 06:10 Alkaline Phosphatase 141 U/L (45-117) H 06/18/20 13:37 Troponin I 0.046 ng/mL (<0.045) H 06/18/20 13:37 B-Natriuretic Peptide 1102.4 pg/mL (0-100) H 06/18/20 13:37 Albumin 2.8 g/dL (3.2-5.0) L 06/18/20 13:37 Lipase 50 U/L (73-393) L 06/18/20 13:37 - Assessment Food / Nutrition-Related History:: Reports early 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 States she gets hungry but only consumes bites prior to being full. Unintentional wt loss of ~14% x 6 months. No special diet at home, does not add salt to foods. Family at bedside states they cook for pt, and try to package small snacks for pt to have throughout the day. She tries to drink 2 bottles of Boost or Ensure per day. Reports constant diarrhea x 1 month. - Nutrition Diagnosis Problem / Etiology / Signs & Symptoms (PES):: severe, chronic malnutrition related to inadequate energy intake w/ increased energy needs d/t COPD, CHF as evidenced by estimated PO intake meeting <50% of estimated nutritional needs >6 months, wt loss of 16#/14% x 6 months. Evidence of Malnutrition Exists:: Yes Severe PCM:: Chronic Illness - Nutrition Intervention Nutrition Prescription:: for wt gain: 3135-7929 calories/day (1.3xRMR). 54-64 g protein/day (1.5g/kg). 1500mL fluid/day - Food / Nutrient Delivery Interventions Summary of nutrition intervention:: Lengthy discussion w/ family and pt about wa ys to incresae calories/protein in foods. Handout provided and reviewed. Encouraged small, frequent meals. Discussed ways to add calories to foods. Nutrition support ordered as / adjusted to:: Will change diet to sodium restricted w/1500mL fluid restriction. Continue 120mL ensure enlive w/ medpass. Will add magic cup w/ lunches, beneprotein w/ all meals, and fortify foods when possible. Nutrition education provided?: Yes - MNT Monitoring Further MNT monitoring and evaluation required?: Yes MNT Follow-up in:: 3-5 days
[2020-06-19 13:24] LABS: Pathologist Review Reviewed
[2020-06-19] MEDS: Leflunomide 10 MG TABLET 20 MG PO (13:31)
--- NOTE | 2020-06-19 14:23 | CASEMGMT ---
Addendum entered by Brittanie Gross 06/19/20 14:48: Pt qualifies for a Palliative referral per the [facility] palliative screening tool at this time. Dr Donohue made aware. He is not agreeable to Palliative referral at this time. Original Note: AMA ORTIZ Re-admission note: Prior admission: Admitted from home on 05/25/20 for NSTEMI and discharged home on 05/27/20. During hospitalization pt had heart cath done. No stents were placed and pt was treated medically. Appt with pt's PCP (Dr Logan) was made for 06/[address] Evans for 06/12, prior to pt being discharged. Current admission: Admitted 06/18/20 with CHF. Pt presented with dyspnea on exertion, diarrhea, and generalized weakness. Pt also states has not had an appetite and has been losing weight. Current weight is 96#. AMA CM to room to talk with pt and daughter, who is at bedside. Pt did not go to the appt scheduled with Dr Evans on 06/12, and states it is d/t she was unable to walk that day. Therapy was in to evaluate pt today, but pt refused therapy eval, stating she is not having any difficulty walking at this time. She states she has been compliant with taking her meds at home as ordered and daughter confirms this. Pt states she wishes to return home at discharge. She lives alone but her daughter is supportive and stays with her often. She denies need for HHC. She was made aware to let CM know if there are any changes/needs. Le ORANTES RN, CM
--- NOTE | 2020-06-19 15:51 | EKG12_ITS ---
Test Reason : Blood Pressure : / mmHG Vent. Rate : 101 BPM Atrial Rate : 101 BPM P-R Int : 184 ms QRS Dur : 084 ms QT Int : 388 ms P-R-T Axes : 069 092 188 degrees QTc Int : [address] & T wave abnormality, consider inferolateral ischemia Abnormal ECG When compared with ECG of 18-JUN-2020 13:21, MANUAL COMPARISON REQUIRED, DATA IS UNCONFIRMED Confirmed by WILVER ALVES, VERNELL ([id number]), editorial project manager BRITTNEY AVILA ([id number]) on 06/23/2020 11:41:48 AM Referred By: DAI Confirmed By:VERNELL PETTIT MD
--- NOTE | 2020-06-19 16:17 | NURSING ---
1545- Reviewing telemetry strips and noted T wave changes. Called Cesario CHRIS who obtained EKG. Pt denies chest pain, only slight discomfort with deep breaths. VS obtained, Sent EKGs to Dr Evans.
[2020-06-19] MEDS: Nortriptyline 25 MG Capsule 100 MG PO (21:36)
[2020-06-19] MEDS: Atorvastatin Calcium 40 MG Tablet PO (21:36)
[2020-06-20] VITALS (7 sets, daily range): BP systolic 104–111; BP diastolic 55–65; PULSE 87–106; RESP 17–19; TEMP 36.5–37.1; O2SAT 95–97
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
[2020-06-20] MEDS: clonazePAM 0.5 MG Tablet PO (02:31)
[2020-06-20 07:31] LABS: Anion Gap 8 (5-15); BUN 28 mg/dL (7-18); BUN/Creat Ratio 41.5 RATIO (10-20); Calcium,Total 8.8 mg/dL (8.5-10.1); Chloride 100 mmol/L (98-107); Creatinine, Serum 0.67 mg/dL (0.55-1.02); EST Glomerular Filtration Rate 90 mL/min (>60); Est Glom Filt Rate - Afr Amer 109 mL/min (>60); Glucose 93 mg/dL (74-106); Magnesium 1.9 mg/dL (1.6-2.6); Potassium 3.4 mmol/L (3.5-5.1); Sodium Level 139 mmol/L (136-145)
[2020-06-20] MEDS: Albuterol 2.5 MG/3 ML VIAL.NEB. INHALATION (07:33)
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
--- NOTE | 2020-06-20 10:33 | PCM.DC ---
- Discharge Diagnoses Current Active Problems: Current Active and Chronic Problems (Last Updated 06/09/20 @ 21:54 by Radha Ball) Pleural effusion (Acute) Acute exacerbation of CHF (congestive heart failure) (Chronic) You will use the following diet at home:: Cardiac, Fluid restricted (specify 2000 mls, 1500 mls) - 1500 ml/day Discharge Activity: Return to Normal Activity Call your doctor if you observe: Fever of 101 or Higher, Shortness of breath Instructions: Taking JAMES Inhibitors, Taking Medication to Control Heart Failure, What Is Heart Failure?, Heart Failure: Warning Signs of a Flare-Up, Heart Failure: Tracking Your Weight, Heart Failure: Being Active, Taking Medications for Your Heart, Common Heart Medications, Heart Failure: Procedures That May Help, Coping with Heart Failure, Heart Failure: Making Changes to Your Diet, What Is COPD?, Care for COPD, COPD: Using Inhalers, Diagnosing COPD Allergies/Adverse Reactions: Allergies aspirin Allergy (Verified 06/18/20 12:44) Nausea levofloxacin [From Levaquin] Allergy (Verified 05/25/20 18:32) severe ankle pain Medications to take at Discharge Clonazepam [Klonopin] 0.5 mg PO BID PRN 04/20/17 Aspirin [Aspirin, Baby] 81 mg PO DAILY@0800 05/02/18 Nortriptyline HCl 25 mg PO QHS 05/02/18 Leflunomide 20 mg PO DAILY 05/25/20 Atorvastatin Calcium [Lipitor] 40 mg PO QHS #90 tab 05/27/20 Albuterol Sulfate [Ventolin Hfa] 2 puff INHALATION 4X/DAY #1 06/20/20 Ensure Enlive 120 ml PO 4X/DAY #120 liquid 06/20/20 Furosemide [Lasix] 20 mg PO DAILY #30 tab 06/20/20 Lisinopril [Zestril] 5 mg PO DAILY #30 tab 06/20/20 Metoprolol(XL)Succ [Toprol Xl (Beta Mitzy)] 25 mg PO DAILY #30 tab 06/20/20 predniSONE tablet 2 tab PO DAILY #8 tab 06/20/20 The following prescriptions were given: Ensure Enlive 120 ml PO 4X/DAY #120 liquid Transmission Status: Pending to [facility] Furosemide [Lasix] 20 mg PO DAILY #30 tab Transmission Status: Pending to [facility] predniSONE tablet 2 tab PO DAILY #8 tab Transmission Status: Pending to [facility] Metoprolol(XL)Succ [Toprol Xl (Beta Mitzy)] 25 mg PO DAILY #30 tab Transmission Status: Pending to [facility] Albuterol Sulfate [Ventolin Hfa] 2 puff INHALATION 4X/DAY #1 Lisinopril [Zestril] 5 mg PO DAILY #30 tab Transmission Status: Pending to [facility] Primary Care Physician: Antelmo Logan MD [Primary Care Provider] - Within 1 Week Test Results: Test results from this visit will be discussed in further detail at your follow-up appointment, if applicable. Please Follow Up With: Presley Evans MD When: 2-4 weeks Please Follow Up With: Cristino Valencia MD - pulmonology When: 2-4 weeks Proposed Discharge Date: 06/20/20
[2020-06-20] MEDS: predniSONE 20 MG Tablet 40 MG PO (11:16)
[2020-06-20] MEDS: Leflunomide 10 MG TABLET 20 MG PO (11:17)
[2020-06-20] MEDS: Potassium Chloride Oral Tablet 20 MEQ 40 MEQ PO (11:22)
[2020-06-20] MEDS: Aspirin 81 MG TAB.CHEW PO (11:23)
--- NOTE | 2020-06-20 12:48 | DS.PCM_ITS ---
Discharge Date and Diagnosis - Problem List Patient Problems: Active and Suspected Problems (Last Updated 06/09/20 @ 21:54 by Radha Ball) Pleural effusion (Acute) Date of Admission: 06/18/20 Date of Discharge: 06/20/20 - Primary Discharge Diagnosis Acute Problems: Active Problems (Last Updated 06/09/20 @ 21:54 by Radha Ball) 1. Pleural effusions * 2/2 CHF * PO furosemide 2. Acute HFrEF * EF 40% on echo from 05/26 * on low dose ACEi * change metoprolol tartrate to succinate 25, * increase lisinopril 5mg/d 3. AECOPD * diminished air movement * doubt the pleural effusion are contributing much to her dyspnea * start prednisone 40 daily for 5 days and BDs * need follow up with pulmonary, PFTs, etc. - Secondary Discharge Diagnosis Chronic Problems: Chronic Problems (Last Updated 06/09/20 @ 21:54 by Radha Ball) Acute exacerbation of CHF (congestive heart failure) (Chronic) Atherosclerotic heart disease of [place] coronary artery without angina pectoris (Chronic) Ischemic cardiomyopathy (Chronic) Secondary pulmonary arterial hypertension (Chronic) COPD (chronic obstructive pulmonary disease) (Chronic) Nicotine dependence (Chronic) Anemia (Chronic) 4. PAH group 3 * 2/2 COPD. compounding her dyspnea, HF, COPD * treat the underlying process(es) * may need PSG as outpt 5. CAD * trop slightly elevated, recheck * maybe demand 2/2 above * RCA occlusion with collaterals, no intervention needed * on ASA and HIS 6. Severe protein malnutrition * supplements * encourage increase PO intake Hospital Course and Treatment Imaging Results: Clinical Impression(s) from Imaging Studies Abdomen/Pelvis CT 06/18/20 13:14 IMPRESSION: Sigmoid diverticulosis. Bilateral pleural effusions with bibasilar atelectasis right greater than left. Right renal cyst and focal cortical scar in the right kidney. Electronically Signed: Emerson Corona MD at 14:53 EST , Service support , Chest X-Ray 06/18/20 13:40 IMPRESSION: Blunting of the right cardiac phrenic angle with increased markings at the right lung base suggesting right basilar atelectasis and/or early infiltrate superimposed on chronic changes. Hyperinflation. Electronically Signed: Emerson Corona MD at 14:20 EST , Service support , Chest CTA 06/18/20 14:14 IMPRESSION: Bilateral pleural effusions with bibasilar atelectasis right greater than left superimposed on emphysematous changes. No evidence of pulmonary embolism. Electronically Signed: Emerson Corona MD at 14:55 EST , Service support , Cristina Operations: None Procedures: None Summary of Care Provided: The patient is a 74 year old F presents with shortness of breath. Patient had a CAT scan that showed a small pleural effusions. Patient was started on diuresis. Patient was seen by cardiology as well. Furosemide was changed over to p.o. Patient was also started on prednisone as well. I discussed the patient I feel that a large component of her shortness of breath this time around was related with undiagnosed COPD and recommended continue with the p.o. prednisone burst plus as needed albuterol. Patient strongly advised to follow- up with pulmonology for further evaluation, including pulmonary function test. Also concerned by the patient's pulmonary artery hypertension which are likely group 3 related with her underlying COPD. She may need further evaluation with polysomnogram but that can be facilitated through pulmonology. [facility] and will be discharged home in stable condition. Additionally, patient is also very cachectic and has severe protein malnutrition. Patient to take supplements at home to help with her caloric intake. [] Patient Problems: Active and Suspected Problems (Last Updated 06/09/20 @ 21:54 by Radha Ball) Pleural effusion (Acute) - Physical Exam Vitals/I&O's: Vital Signs Temp Pulse Resp BP Pulse Ox 37.1 C 98 18 104/55 L 97 06/20/20 11:13 06/20/20 11:24 06/20/20 11:13 06/20/20 11:24 06/20/20 11:13 Oxygen Delivery Method Room Air Weight: 43 kg Body Mass Index (BMI) 15.5 Intake and Output for Last 24 Hours 06/18/20 06/19/20 06/20/20 23:59 23:59 23:59 Intake Total 412.5 / 612.5 800 / 800 462 / 462 Output Total 2260 / 2260 1650 / 1650 Balance 412.5 / -487.5 -1460 / -1460 -1188 / -1188 General: Alert, No apparent distress HEENT: Atraumatic, Normocephalic Oral: Moist Mucosa, No Gingival or Mucosal Lesions/ Ulcerations Neck: No Nodes, Thyroid Normal Size and Texture Lungs: Diminished - increased air movment Cardiovascular: Regular rate, Regular Rhythm, Normal S1, Normal S2, No murmurs Abdomen: Bowel Sounds Present, Soft, Non Tender, Non-Distended, No Hepato- splenomegaly Extremities: No edema, No Calf Tenderness Skin: No rashes, No breakdown Psych/Mental Status: Normal Affect, Appropriate Microbiology Past 72 Hours 06/18/20 13:16 Mucosa - Nose SARS-CoV-2 Antigen (Rapid) - Final Laboratory Results 06/18/20 13:37: Diff Path Review Reviewed 06/20/20 06:32: Sodium 139, Potassium 3.4 L, Chloride 100, Carbon Dioxide 31.0, Anion Gap 8, BUN 28 H, Creatinine 0.67, Estim Creat Clear Calc 33.00, Est GFR (MDRD) Af Amer 109, Est GFR (MDRD) Non-Af 90, BUN/Creatinine Ratio 41.5 H, Glucose 93, Calcium 8.8, Magnesium 1.9 Discharge Diet: Low fat/ Low Cholesterol Discharge Activity: Return to Normal Activity Call your doctor if you observe: Fever of 101 or Higher, Shortness of breath Home Medications: Medications to take at Discharge Clonazepam [Klonopin] 0.5 mg PO BID PRN 04/20/17 Aspirin [Aspirin, Baby] 81 mg PO DAILY@0800 05/02/18 Nortriptyline HCl 25 mg PO QHS 05/02/18 Leflunomide 20 mg PO DAILY 05/25/20 Atorvastatin Calcium [Lipitor] 40 mg PO QHS #90 tab 05/27/20 Albuterol Sulfate [Ventolin Hfa] 2 puff INHALATION 4X/DAY #1 06/20/20 Ensure Enlive 120 ml PO 4X/DAY #120 liquid 06/20/20 Furosemide [Lasix] 20 mg PO DAILY #30 tab 06/20/20 Lisinopril [Zestril] 5 mg PO DAILY #30 tab 06/20/20 Metoprolol(XL)Succ [Toprol Xl (Beta Mitzy)] 25 mg PO DAILY #30 tab 06/20/20 predniSONE tablet 2 tab PO DAILY #8 tab 06/20/20 Following Prescriptions Were Given to Patient: Ensure Enlive 120 ml PO 4X/DAY #120 liquid Transmission Status: Received by [facility] [employer] [facility] #44 Furosemide [Lasix] 20 mg PO DAILY #30 tab Transmission Status: Received by [employer] [facility] [employer] [facility] #44 predniSONE tablet 2 tab PO DAILY #8 tab Transmission Status: Received by [employer] [facility] [employer] [facility] #44 Metoprolol(XL)Succ [Toprol Xl (Beta Mitzy)] 25 mg PO DAILY #30 tab Transmission Status: Received by [employer] [facility] [employer] [facility] #44 Albuterol Sulfate [Ventolin Hfa] 2 puff INHALATION 4X/DAY #1 Lisinopril [Zestril] 5 mg PO DAILY #30 tab Transmission Status: Received by [employer] [facility] [employer] [facility] #44 Primary Care Physician: Antelmo Logan MD [Primary Care Provider] - Within 1 Week Please Follow Up With: Presley Evans MD When: 2-4 weeks Please Follow Up With: Cristino Valencia MD - pulmonology When: 2-4 weeks Patient Instructions: Taking JAMES Inhibitors, Taking Medication to Control Heart Failure, What Is Heart Failure?, Heart Failure: Warning Signs of a Flare-Up, Heart Failure: Tracking Your Weight, Heart Failure: Being Active, What Is COPD?, Taking Medications for Your Heart, Common Heart Medications, Heart Failure: Procedures That May Help, Coping with Heart Failure, Heart Failure: Making Changes to Your Diet, Care for COPD, COPD: Using Inhalers, Diagnosing COPD Disposition: Home Minutes spent on discharge:: 32 Patient Condition:: Fair Medical Necessity - Tobacco Use Smoking Status: Current every day smoker Tobacco Use: Cigarettes Meaningful Use Info Meaningful Use Diagnoses (Choose all that apply): CHF - CHF JAMES/ARB ordered at discharge?: Yes Documented LVEF (%): 40 Inpatient E&M: 24493 Disch Hosp
--- NOTE | 2020-06-22 14:54 | CASEMGMT ---
AMA ORTIZ Discharge F/U Phone Call LACE: 11 Strata: 3 Discharge date: 06/20/20 Call date: 06/22/20 Call time: [phone] Attempted to reach pt without success at this time, unable to leave pt a message as her voicemail box is full. AMA ORTIZ to attempt again later. SStaten AMA CM Admission dx: CHF
--- NOTE | 2020-06-23 13:19 | CASEMGMT ---
AMA CM DC PHONE CALL DC DATE: 06/20/2020 DC DISPOSITION: Home DC DIAGNOSIS: pleural effusions, CHF LACE/STRATA: F/U APPTS MADE PRIOR TO DC: PRESCRIPTIONS ACQUIRED BY PT: yes Intro role of CM to patient via phone. Pt does have questions re: prescriptions, however does not have her DC instructions with her. Phone number given for patient to call back to review medications. Fahad ORANTES RN ACM
--- NOTE | 2020-06-24 11:51 | CASEMGMT ---
Addendum entered by Praveen Ma 06/24/20 12:16: Patient was able to return call. Reviewed medication list very thoroughly and had patient list medications verbally back to AMA ORTIZ. By the end of call, the patient had good understanding of her medication changes. She is voicing no other concerns re: home situation at this time. Appt for f/u was made with Dr. Logan for next week. Fahad KRISHNA Original Note: AMA ORTIZ DC CALL -call to patient's phone. Pt answered, but call dropped. Attempted to call back x 2, however no answer and message box was full. Fahad KRISHNA
== END 2020-06-20 12:01 | disposition home or self-care (01) | DRG 291 ==
LOC: ED 14:35 → PCU 15:48
PROVIDERS: Admitting Provider Family Medicine; Emergency Provider Emergency Medicine; PCP Family Medicine
DX: I11.0 Hypertensive heart disease with heart failure (principal); E43 Unspecified severe protein-calorie malnutrition; Z68.1 Body mass index [BMI] 19.9 or less, adult; I50.23 Acute on chronic systolic (congestive) heart failure; M06.9 Rheumatoid arthritis, unspecified; F32.9 Major depressive disorder, single episode, unspecified; D64.9 Anemia, unspecified; I27.20 Pulmonary hypertension, unspecified; I25.10 Atherosclerotic heart disease of native coronary artery without angina pectoris; F41.9 Anxiety disorder, unspecified; I25.2 Old myocardial infarction; I25.5 Ischemic cardiomyopathy; I27.21 Secondary pulmonary arterial hypertension; F17.210 Nicotine dependence, cigarettes, uncomplicated; J44.9 Chronic obstructive pulmonary disease, unspecified; Z87.01 Personal history of pneumonia (recurrent); Z87.440 Personal history of urinary (tract) infections; Z79.82 Long term (current) use of aspirin; Z79.899 Other long term (current) drug therapy
CPT/HCPCS: 36415; 71045; 71275; 74177; 80048; 80076; 83690; 83735; 83880; 84484; 85025; 87426; 93005; 94640; 96361; 96372; 96374; 96376; 97802; 99218; 99283; J7030; Q9967; A4216; G0378; J1940